=== PATIENT | male | born 1925 | race Caucasian/White ===

== ENCOUNTER 2017-06-09 11:25 | Observation (INO) | payer MEDICARE, BC ==
--- NOTE | 2017-06-09 13:13 | RAD ---
HISTORY: Syncope COMPARISONS: June 15, 2004 VIEWS: 1: frontal portable view of the chest at 12:50 PM FINDINGS: LINES AND TUBES: None. CARDIOMEDIASTINAL SILHOUETTE: The cardiomediastinal silhouette is normal for portable technique. PLEURA: The costophrenic angles are sharp. No pleural abnormalities are noted. LUNG PARENCHYMA: The lungs are clear. ABDOMEN: The upper abdomen is clear. There is no subphrenic gas. BONES AND SOFT TISSUES: No bone or soft tissue abnormalities are noted. IMPRESSION: NO ACTIVE CARDIOPULMONARY DISEASE.
[2017-06-09 13:34] LABS: Hematocrit 40 % (42-52); Hemoglobin 13.8 g/dl (14.0-18.0); Mean Corpuscular HGB Conc 35 g/dl (31-36); Mean Corpuscular Hemoglobin 31 pg (27-31); Mean Corpuscular Volume 89 fL (80-94); Mean Platelet Volume 9 um3 (7.4-10.4); Red Cell Distribution Width 14 % (10.5-15)
--- NOTE | 2017-06-09 13:35 | RAD ---
INDICATION: Syncope COMPARISON: December 27, 2015 TECHNIQUE: Noncontrast axial source images were acquired from the skull base to the vertex. FINDINGS: Ventricles/sulci: There is cortical atrophy with compensatory dilatation of the CSF spaces. Brain parenchyma: There is periventricular and subcortical white matter change compatible with chronic ischemia. Intracranial hemorrhage:None. Extra-axial spaces: There are no abnormal extra axial fluid collections or evidence of extra-axial mass. Calvarium: There is no calvarial fracture or other calvarial abnormality. Scalp: There is no evidence of scalp or extracalvarial soft tissue abnormality. Paranasal sinuses/mastoid: The paranasal sinuses and mastoid air cells are clear. Other: None. IMPRESSION: CORTICAL ATROPHY WITH CHRONIC MICROVASCULAR ISCHEMIC CHANGES. NO ACUTE FINDINGS.
[2017-06-09 13:56] LABS: Troponin I 0.01 ng/mL (<0.04)
[2017-06-09 14:13] LABS: Albumin 3.7 g/dL (3.2-5.2); BUN/Creatinine Ratio 30.4 (8-20); EGFR African American 118.8 (>60); EGFR Non-African American 92.4 (>60); Globulin 2.5 g/dL (2-4); Magnesium 2.6 mg/dL (1.9-2.7); Potassium 4.1 mmol/L (3.5-5.0); Total Protein 6.2 g/dL (6.4-8.9)
[2017-06-09 14:19] LABS: TSH (Thyroid Stimulating Horm) 2.36 mcIU/mL (0.34-5.60)
--- NOTE | 2017-06-09 14:28 | ED ---
Sindy Dorantes SooYoung, scribed for Mark Osorio MD on 06/09/17 at 1155 . Dizziness - HPI Summary HPI Summary: An 89 y/o M presents to ED after near-syncope onset [employer]. Pt was in an elevator and suddenly felt lightheaded. Other people in the elevator helped him to the ground before he fell. Associated sx: lightheadedness, mild confusion, generalized weakness. Over the past few weeks, he's been more fatigued than normal. Pt is unsure of any sx prior to onset. No prev episodes of syncope. Nonsmoker, occ ETOH. Pert PMHx: CABG. - History Of Current Complaint Chief Complaint: EDSyncope Stated Complaint: NEAR SYNCOPE Time Seen by Provider: 06/09/17 11:52 Hx Obtained From: Patient, Family/Order Desk Caller - nephew at bedside Onset/Duration: Resolved Severity Initially: Mild Severity Currently: Mild Character: Lightheaded Associated Signs And Symptoms: Positive: Other: - general fatigue; lightheadedness; mild confusion; generalized weakness - Allergies/Home Medications Allergies/Adverse Reactions: Allergies Allergy/AdvReac Type Severity Reaction Status Date / Time No Known Allergies Allergy Verified 08/13/15 10:33 Home Medications: Home Medications Fosinopril (NF) [Monopril (NF)] 10 mg PO DAILY 06/09/17 [History Confirmed 06/09] Sertraline* [Zoloft*] 25 mg PO DAILY 06/09/17 [History Confirmed 06/09/17] Terazosin CAP* [Hytrin CAP*] 2 mg PO BEDTIME 06/09/17 [History Confirmed ] amLODIPine TAB* [Norvasc 5 mg TAB*] 5 mg PO DAILY 06/09/17 [History Confirmed ] PMH/Surg Hx/FS Hx/Imm Hx Previously Healthy: No Cardiovascular History: Reports: Hx Coronary Artery Disease - CABGX4 1999, Hx Hypertension - WELL CONTROLLED History: Reports: Other Problems/Disorders - RIGHT SPERMATOCELE Sensory History: Reports: Hx Contacts or Glasses - GLASSES Denies: Hx Hearing Aid Opthamlomology History: Reports: Hx Contacts or Glasses - GLASSES - Surgical History Surgery Procedure, Year, and Place: HERNIA REPAIR MANY YRS AGO. BIL[place] [facility] [place] Anesthesia Reactions: No Infectious Disease History: No Infectious Disease History: Denies: Traveled Outside the [place] in Last 30 Days - Family History Known Family History: Positive: Cardiac Disease, Other - neg: anasthesia reaction - Social History Occupation: Retired Lives: Alone Alcohol Use: Rare Hx Substance Use: No Substance Use Type: Reports: None Hx Tobacco Use: Yes Smoking Status (MU): Former Smoker Review of Systems Positive: Fatigue Neurological: Other - pos: mild confusion, lightheadedness Positive: Weakness, Syncope All Other Systems Reviewed And Are Negative: Yes Physical Exam Triage Information Reviewed: Yes Vital Signs On Initial Exam: Initial Vitals BP 139/66 06/09/17 11:37 Vital Signs Reviewed: Yes Appearance: Positive: Well-Appearing, No Pain Distress Skin: Positive: Skin Color Reflects Adequate Perfusion Head/Face: Positive: Normal Head/Face Inspection Eyes: Positive: EOMI ENT: Positive: Normal ENT inspection Neck: Positive: Nontender Respiratory/Lung Sounds: Positive: Clear to Auscultation, Breath Sounds Present Cardiovascular: Positive: RRR, Murmur - systolic Abdomen Description: Positive: Nontender Musculoskeletal: Positive: Strength/ROM Intact Neurological: Positive: Sensory/Motor Intact, Alert, Oriented to Person Place, Time, CN Intact II-III Psychiatric: Positive: Normal - [place] Coma Scale Best Eye Response: 4 - Spontaneous Best Motor Response: 6 - Obeys Commands Best Verbal Response: 5 - Oriented Coma Scale Total: 15 Diagnostics - Vital Signs Vital Signs Temp Pulse Resp BP Pulse Ox 06/09/17 11:39 57 98 06/09/17 11:38 98.7 F 57 16 139/66 98 06/09/17 11:37 139/66 - Laboratory Result Diagrams: 06/09/17 13:24 06/09/17 13:24 Lab Statement: Any lab studies that have been ordered have been reviewed, and results considered in the medical decision making process. - Radiology CXR Xray Interpretation: No Acute Changes - IMPRESSION: No active cardiopulmonary dz. ED physician has reviewed this radiology report and agrees. Radiology Interpretation Completed By: Radiologist - CT BRAIN CT CT Interpretation: No Acute Changes - IMPRESSION: CORTICAL ATROPHY WITH CHRONIC MICROVASCULAR ISCHEMIC CHANGES. NO ACUTE FINDINGS. ED physician has reviewed this radiology report and agrees. CT Interpretation Completed By: Radiologist - EKG 1245 Cardiac Rate: NL - 52 bpm EKG Rhythm: Sinus Bradycardia ST Segment: Normal - no STEMI Dizzy Course/Dx - Course Course Of Treatment: An 89 y/o M presents to ED after near-syncope onset [employer]. Pt was in an elevator and suddenly felt lightheaded. Other people in the elevator helped him to the ground before he fell. Associated sx: lightheadedness , mild confusion, general weakness. Over the past few weeks, he's been more fatigued than normal. Pt is unsure of his sx prior to onset. No prev episodes of syncope. Nonsmoker, occ ETOH. Pert PMHx: CABG. FHx; cardiac dz. CXR is negative. Brain CT shows "IMPRESSION: CORTICAL ATROPHY WITH CHRONIC MICROVASCULAR ISCHEMIC CHANGES. NO ACUTE FINDINGS." - Diagnoses Provider Diagnoses: Syncope, Heart murmur - Provider Notifications Discussed Care Of Patient With: Ayo Irving - hospitalist Time Discussed With Above Provider: 14:16 Instructed by Provider To: Admit As Inpatient Discharge - Discharge Plan Condition: Good Disposition: ADMITTED TO [facility] The documentation as recorded by the Sindy guidry SooYoung accurately reflects the service I personally performed and the decisions made by me, Mark Osorio MD.
[2017-06-09 14:34] LABS: Urine Bilirubin Negative (Negative); Urine Glucose 1+(50 mg/dL) (Negative); Urine Nitrite Negative (Negative)
[2017-06-09] MEDS ORDERED: Acetaminophen TAB* 325 MG PO PRN (15:28)
[2017-06-09] MEDS ORDERED: Ondansetron INJ* 2 MG/ML VIAL IV PRN (15:28)
[2017-06-09] MEDS ORDERED: Enoxaparin(*) 40 MG/0.4 ML SYR SUBCUT SCH (16:00)
[2017-06-09] MEDS ORDERED: Atenolol TAB* 50 MG PO SCH (18:00)
[2017-06-09] MEDS ORDERED: Aspirin Low Dose CHEW TAB* 81 MG PO SCH (18:00)
[2017-06-09] MEDS ORDERED: Finasteride TAB* 5 MG PO SCH (21:00)
[2017-06-09] MEDS ORDERED: Terazosin CAP* 1 MG PO SCH (21:00)
--- NOTE | 2017-06-09 21:05 | HP ---
CC: Dr. Rodriguez* ADMISSION HISTORY AND PHYSICAL: DATE OF ADMISSION: 06/09/17 PRIMARY CARE PROVIDER: Dr. Rodriguez. ADMITTING PROVIDER: CLAUDIO Quintanilla SUPERVISING PHYSICIAN: Dr. Babar Riojas* (dictated by CLAUDIO Quintanilla). CHIEF COMPLAINT: Near syncope. HISTORY OF PRESENT ILLNESS: This is an 89-year-old gentleman with known coronary disease, who presented to the emergency department after a near syncopal event. The patient states that he was in his apartment complex standing and waiting for an elevator when he suddenly saw like he was unable to stand because of weakness and had some associated chest discomfort. He denies really feeling dizzy, but believes he might have been somewhat short of breath. There were a few people around him that helped him to the ground and then to a chair. His chest discomfort resolved and then he had a similar episode just about an hour ago according to his nephew. After the episode more recently, he also commented that his extremities felt cold. He also recalls that he has similar symptoms about 2 weeks ago in terms of a chest discomfort, but he did not have any syncope or presyncope at that time and did not seek medical care. Over the last couple of weeks, he has noted decreased exercise tolerance and some more generalized fatigue. He generally walked from his apartment to downtown and is able to do so without difficulty, but over the last couple of weeks, he has felt quite fatigued about correction his journey. He denies any recent illness. No cough, shortness of breath, fevers, or chills. He notes that he has had recent medication changes including introduction of Zoloft for some mild confusion and irritability and his statin was discontinued, but changes to his antihypertensive regimen. In regards to his cardiac history, he has remote history of CABG about 20 years ago and has been stable ever since. He is on medical management for this, but has no significant history of angina or recent stenting or other hospitalizations for any reason. PAST MEDICAL HISTORY: 1. Coronary artery disease, status post CABG. 2. BPH. PAST SURGICAL HISTORY: 1. Inguinal hernia repair. 2. CABG about 20 years ago. HOME MEDICATIONS: 1. Aspirin 81. 2. Atenolol 50 mg p.o. daily. 3. Lipitor 20 mg p.o. daily. 4. Finasteride 5 mg p.o. at bedtime. 5. Fosinopril 10 mg p.o. daily. 6. Sertraline 25 mg p.o. daily. 7. Terazosin 2 mg p.o. at bedtime. 8. Amlodipine 5 mg p.o. daily. SOCIAL HISTORY: The patient lives in an apartment at [facility]. He quit smoking about 40 years ago and sounds like he has less than 07-japt-m-year smoking history. He rarely consumes alcohol. REVIEW OF SYSTEMS: As noted above in HPI. All other systems reviewed and considered negative. PHYSICAL EXAMINATION VITAL SIGNS: Initial vitals temperature 98.7 degrees Fahrenheit, pulse 60 beats per minute, respiratory rate 16, oxygen saturation 98% on room air, and blood pressure 139/66 mmHg. DIAGNOSTIC STUDIES/LAB DATA: CBC shows white blood cell count of 6000, hemoglobin of 13.8 g/dL, and platelet count of 137,000. Comprehensive metabolic panel is unremarkable with sodium of 139 mmol/L, potassium of 4.1, BUN of 24, creatinine of 0.79, random glucose of 129, lactic acid of 1.6, magnesium of 2.6. Total bilirubin and transaminases within normal limits. Troponin negative at 0.01. TSH normal at 2.36. Urinalysis shows 1+ glucose and trace ketones. Hospital imaging: Chest x-ray shows no acute process. CT of the brain shows atrophy and microvascular changes, but nothing acute. EKG shows sinus bradycardia. ASSESSMENT AND PLAN: This is an 89-year-old gentleman with a history of coronary artery disease and benign prostatic hyperplasia, who presented to the emergency department after near syncopal episode accompanied by chest discomfort. The patient will be admitted to observation status for further evaluation. 1. Near syncope and chest discomfort - the patient has known coronary disease. His initial EKG and troponin are benign. No dysrhythmias appreciated on telemetry in the emergency department. We will plan to obtain an echocardiogram as well as orthostatic vitals and continuous telemetry monitoring. He is noted to be normotensive in the emergency department. He is mildly bradycardic, but not severely so. 2. Glucosuria. The patient has 1+ glucose noted on his urinalysis. His random glucose is appropriate, but we will check hemoglobin A1c to evaluate further. 3. Coronary artery disease - no evidence of acute coronary syndrome. 4. Benign prostatic hyperplasia. 5. Code status. The patient is a full code. 6. Healthcare prosy is the patient's nephew, Jovani Phillips, with cell phone [phone]. 7. DVT prophylaxis. The patient will be started on subcu Lovenox. 8. Disposition: The patient is being admitted to observation status with anticipated length of stay to be less than 2 midnights. CLAUDIO QUINTANILLA [id number]/CPS #: [id number] ERNA
[2017-06-10] MEDS ORDERED: Haloperidol INJ IV/IM* 5 MG/ML AMP IV SLOW PU ONE (08:17)
--- NOTE | 2017-06-10 08:17 | PN ---
Subjective Date of Service: 06/10/17 Interval History: Patient seen and examined at bedside. Pt states that he wants to leave. Denies fever, chills, shortness of breath, chest discomfort, N/V/D. Pt is walking in the halls with [facility] staff. Pt has taken his telemetry off and wouldn't cooperate for an echo. Discussed Pt with his nephew Jovani, who states that the patient is confused every morning. He states that he received a phone call daily from [facility] [place] [facility] and his confusion improves over the day. Tele: Sinus dhara, rate 50's. Family History: Unchanged from Admission Social History: Unchanged from Admission Past Medical History: Unchanged from Admission Objective Active Medications: Acetaminophen (Tylenol Tab*) 650 mg PO Q4H PRN Reason: FEVER/PAIN Amlodipine Besylate (Norvasc Tab*) 5 mg PO DAILY RIGOBERTO Aspirin (Aspirin Low Dose Tab*) 81 mg PO QPM RIGOBERTO Atenolol (Tenormin Tab*) 50 mg PO QPM RIGOBERTO Enoxaparin Sodium (Lovenox(*)) 40 mg SUBCUT Q24H RIGOBERTO Finasteride (Proscar Tab*) 5 mg PO BEDTIME RIGOBERTO Lisinopril (Prinivil Tab*) 10 mg PO DAILY RIGOBERTO Ondansetron HCl (Zofran Inj*) 4 mg IV Q4H PRN Reason: NAUSEA/VOMITING Sertraline HCl (Zoloft*) 25 mg PO DAILY RIGOBERTO Terazosin HCl (Hytrin Cap*) 2 mg PO BEDTIME RIGOBERTO Vital Signs 06/09/17 06/09/17 06/09/17 14:30 15:00 15:30 Temperature Pulse Rate 55 54 61 Respiratory 16 17 17 Rate Blood Pressure 164/69 182/78 137/75 (mmHg) O2 Sat by Pulse 99 99 97 Oximetry 06/09/17 06/09/17 06/09/17 16:00 17:07 19:33 Temperature 98.3 F 97.6 F Pulse Rate 60 63 55 Respiratory 18 16 Rate Blood Pressure 131/59 191/82 147/61 (mmHg) O2 Sat by Pulse 97 99 95 Oximetry 06/09/17 06/10/17 06/10/17 19:49 01:14 05:19 Temperature 97.3 F Pulse Rate 65 50 Respiratory 18 20 Rate Blood Pressure 112/53 176/63 (mmHg) O2 Sat by Pulse 100 Oximetry Oxygen Devices in Use Now: None Appearance: NAD, sitting up on the side of the bed Ears/Nose/Mouth/Throat: Mucous Membranes Moist Respiratory: Symmetrical Chest Expansion and Respiratory Effort, Clear to Auscultation Cardiovascular: RRR, - - 2/6 systolic murmur Extremities: No Edema Skin: No Rash or Ulcers Neurological: NL Muscle Strength and Tone, - - Alert and Oriented to Person and Place, confused Lines/Tubes/Other Access: Clean, Dry and Intact Peripheral IV - site benign Nutrition: Taking PO's Result Diagrams: 06/09/17 13:24 06/09/17 13:24 Assess/Plan/Problems-Billing Assessment: Mr. Phillips is an 89 yo male with PMH significant for CAD s/p CABG, and BPH who presented to the emergency room with complaints of a near syncopal episode and chest discomfort. - Patient Problems (1) Altered mental status Code(s): R41.82 - ALTERED MENTAL STATUS, UNSPECIFIED SNOMED Code(s): 548449510 Comment: - Pt is confused and agitated this morning - New per Dr. Rodriguez - Not new per Nupur Hahn - Supportive care (2) Near syncope Comment: - Tele - Sinus dhara in the 50's - Trop 0.01 x3 - Echo pending - Pt noted to be orthostatic from sitting to standing early this morning (3) Chest pain Code(s): R07.9 - CHEST PAIN, UNSPECIFIED SNOMED Code(s): 60318908 Comment: - Denies chest pain at this time - Troponin 0.01 x3 (4) Glucosuria Code(s): R81 - GLYCOSURIA SNOMED Code(s): 20965447 Comment: - HgA1C 6.8 (5) CAD (coronary artery disease) Code(s): I25.10 - ATHSCL HEART DISEASE OF [place] CORONARY ARTERY W/O ANG PCTRS SNOMED Code(s): 32260606 Comment: - No evidence ACS at this time - Continue atenolol, ASA and statin (6) HTN (hypertension) Current Visit: No Status: Chronic Code(s): I10 - ESSENTIAL (PRIMARY) HYPERTENSION SNOMED Code(s): 15482009 Comment: - SBP 130-190's with the exception of orthostatic VS - Continue atenolol and amlodipine - Hold ACEI for now (7) BPH (benign prostatic hyperplasia) Code(s): N40.0 - BENIGN PROSTATIC HYPERPLASIA WITHOUT LOWER URINRY TRACT SYMP SNOMED Code(s): 724116143 Comment: - Continue finasteride (8) DVT prophylaxis Code(s): VPG7251 - SNOMED Code(s): 777758528 Comment: - Lovenox (9) Full code status Code(s): Z78.9 - OTHER SPECIFIED HEALTH STATUS SNOMED Code(s): 534171331 Status and Disposition: OBV. Discharge to home when medically stable.
[2017-06-10] MEDS ORDERED: Haloperidol INJ IV/IM* 5 MG/ML AMP ONE (08:18)
[2017-06-10] MEDS ORDERED: Sertraline* 25 MG TAB PO SCH (09:00)
[2017-06-10] MEDS ORDERED: amLODIPine TAB* 5 MG PO SCH (09:00)
[2017-06-10] MEDS ORDERED: Lisinopril TAB* 10 MG PO SCH (09:00)
[2017-06-10] MEDS ORDERED: Perflutren Lipid Microsphere* 3 ML VIAL ONE (12:23)
[2017-06-10 12:24] VITALS: BP 123/58
--- NOTE | 2017-06-10 14:21 | ECHO ---
Patient: TJ [facility] Rec#: [id number] : 1925 Date: 06/10/2017 Age: 89y Height: 185.42 cm / 73.0 in Weight: 99.79 kg / 219.9 lbs Sex: M BSA: 2.24 Room#: 437 Admit Date#: 06/09/2017 Type: Inpatient Referring: Ayo Irving Reading: Andry Lange MD [place]: Sherry Hoffmann RDCS CC: Marco Antonio Rodriguez MD Transthoracic Echocardiogram Indication: Syncope BP: 176/63 HR: 53 Rhythm: Bradycardia Findings History: CAD with CABGx4 1999,HTN,former smoker. Technical Comments: The study is technically limited due to the patient's smoking history. 3 ml Definity used for enhancement. Completed at 1330. Left Ventricle: The left ventricular chamber size is normal. Mild concentric left ventricular hypertrophy is observed. Global left ventricular wall motion and contractility are within normal limits. There is normal left ventricular systolic function. The estimated ejection fraction is 60-65%. Abnormal left ventricular diastolic function is observed. The patient was unable to perform a Valsalva maneuver. Left Atrium: The left atrium is mildly dilated. Right Ventricle: The right ventricular cavity size is normal. The right ventricular global systolic function is normal. Right Atrium: The right atrium is moderately dilated. Aortic Valve: The aortic valve is trileaflet. The aortic valve leaflets are mildly thickened. There is no evidence of aortic regurgitation. There is mild to moderate aortic stenosis. The highest aortic valve velocity was obtained with the standard probe from the A5C view. Mitral Valve: The mitral valve leaflets are mildly thickened. There is trace to mild mitral regurgitation. Tricuspid Valve: The tricuspid valve leaflets are normal. There is mild to moderate tricuspid regurgitation. No pulmonary hypertension is noted. Pulmonic Valve: The pulmonic valve appears normal. There is mild to moderate pulmonic regurgitation. There is no pulmonic stenosis. Pericardium: There is no significant pericardial effusion. Aorta: There is no dilatation of the ascending aorta. There is no dilatation of the aortic arch. There is no dilation of the aortic root. Pulmonary Artery: The main pulmonary artery is not well visualized. Venous: The venous system appears normal. The inferior vena cava appears normal in size. There is a greater than 50% respiratory change in the inferior vena cava dimension. Contrast: Definity was used to optimize study. 3 ml used. Intravenous contrast was used to enhance endocardial border definition. Conclusions There is normal left ventricular systolic function. The estimated ejection fraction is 60-65%. Global left ventricular wall motion and contractility are within normal limits. Mild concentric left ventricular hypertrophy is observed. The left ventricular chamber size is normal. Abnormal left ventricular diastolic function is observed. The left atrium is mildly dilated. The right atrium is moderately dilated. There is mild to moderate aortic stenosis (). There is mild to moderate tricuspid regurgitation (TR). There is mild to moderate pulmonic regurgitation (ID). Since the prior echocardiogram completed 06/15/04, pertinent changes are prior not noted, prior TR graded trace and prior ID not commented upon. Measurements Name Value Normal Range RVIDd (AP) 2D 2.7 cm (0.9 - 2.6) RVDdMajor (2D) 4.1 cm (2.2 - 4.4) RAd ISD 4CH 5.8 cm (3.4 - 4.9) RA (A4C)W 4.5 cm (2.9 - 4.6) IVSd (2D) 1.1 cm (0.6 - 1) LVPWd (2D) 1.2 cm (0.6 - 1) LVIDd (2D) 4.5 cm (3.6 - 5.4) LVIDs (2D) 3.1 cm - LV FS (2D) 30 % (25 - 45) Aortic Annulus 2.1 cm (1.4 - 2.6) Ao root diameter (2D) 3.5 cm (2.1 - 3.5) Ascending Ao 3.1 cm (2.1 - 3.4) Aortic arch 2.3 cm (1.8 - 3.4) Descending Ao 0.6 cm - LA dimension (AP) 2D 3.9 cm (2.3 - 3.8) LAd ISD 4CH 5.4 cm (2.9 - 5.3) LA ISD 4CH W 3.6 cm (2.5 - 4.5) Name Value Normal Range LA ESV SP 4CH (A/L) 74 ml - LA ESV SP 2CH (A/L) 83 ml - LA ESV BP (A/L) 84 ml - LA ESV BP (A/L) index 37.66 ml/m2 - LA ESV SP 4CH (MOD) 65 ml - LA ESV SP 2CH (MOD) 79 ml - Name Value Normal Range MV E-wave Vmax 0.9 m/sec - MV deceleration time 286 msec - MV A-wave Vmax 1.1 m/sec - MV E:A ratio 0.75 ratio - LV septal e' Vmax 0.05 m/sec - LV lateral e' Vmax 0.1 m/sec - LV E:e' septal ratio 18 ratio - LV E:e' lateral ratio 9 ratio - Name Value Normal Range AV Vmax 2.7 m/sec - AV VTI 69.1 cm - AV peak gradient 29.2 mmHg - AV mean gradient 14.2 mmHg - LVOT diameter 2 cm - LVOT Vmax 0.9 m/sec - LVOT VTI 23.9 cm - LVOT peak gradient 2.96 mmHg - LVOT mean gradient 1.46 mmHg - SV LVOT 88 ml - CLARA (continuity Vmax) 1 cm2 - CLARA (continuity VTI) 1.1 cm2 - Name Value Normal Range TR Vmax 2.7 m/sec - TR peak gradient 29 mmHg - RAP 3 mmHg - RVSP 32 mmHg - IVC diameter 1.3 cm - Name Value Normal Range PV Vmax 0.8 m/sec - PV peak gradient 2.6 mmHg -
--- NOTE | 2017-06-11 10:34 | DS ---
CC: Dr. Marco Antonio Rodriguez * DISCHARGE SUMMARY: DATE OF ADMISSION: 06/09/17 DATE OF DISCHARGE: 06/10/17 ATTENDING PHYSICIAN: Dr. Elvis Verma * (dictated by Meghna Choe NP) . PRIMARY CARE PROVIDER: Dr. Marco Antonio Rodriguez. PRIMARY DIAGNOSES: 1. Near syncope. 2. Emem-sk-qkswoehq aortic valve stenosis. 3. Unknown orthostatic hypotension. SECONDARY DIAGNOSES: 1. Coronary artery disease. 2. Benign prostatic hypertrophy. STUDIES WHILE IN THE HOSPITAL: 1. Brain CT on 06/09/17. Radiologist's impression: Cortical atrophy with chronic microvascular ischemic changes. No acute findings. 2. Chest x-ray, 06/09/17. Radiologist's impression: No active cardiopulmonary disease. 3. Transthoracic echocardiogram on 06/10/17. Top Ironer's conclusion: There is normal left ventricular systolic function. The estimated ejection fraction is 60% to 65%. Global left ventricular wall motion and contractility are within normal limits. Mild concentric left ventricular hypertrophy is observed. The left ventricular chamber size is normal. Abnormal left ventricular diastolic function is observed. Left atrium is mildly dilated. The right atrium is moderately dilated. There is mokj-cj-wywbyhkw aortic stenosis. There is kfgj-dr-htgucakq tricuspid regurgitation, emxh-jy-yrfkcfym pulmonic regurgitation. Since the prior echocardiogram completed on 06/15/04, pertinent changes are prior not noted, prior TR grade trace and prior MA not commented upon. DISCHARGE MEDICATIONS: Continued home medications: 1. Finasteride 5 mg oral daily at bedtime. 2. Aspirin 81 mg oral daily. 3. Atorvastatin 20 mg oral daily. 4. Atenolol 50 mg oral daily. 5. Amlodipine 5 mg oral daily. 6. Terazosin 2 mg oral daily at bedtime. 7. Sertraline 25 mg oral daily. Discontinued home medication: 1. Fosinopril. HISTORY OF PRESENT ILLNESS/HOSPITAL COURSE: Mr. Phillips is an 89-year-old male with past medical history significant for coronary artery disease, who presented to the emergency room after a near syncopal event. The patient was in his apartment complex, just walked to the elevator and waiting for the elevator when he suddenly was unable to stand up due to weakness and have some associated chest discomfort. The patient denied feeling dizziness, but believes he may have had some sort of shortness of breath. There were few people around him, who helped him to the ground and then to a chair. The patient's chest discomfort resolved and then he had a repeat similar episode. Overall, the last couple of weeks, the patient has had decreased exercise tolerance and some more generalized fatigue. He is generally able to walk around without any difficulty, but over the last couple of weeks, he felt fatigued on his walks. The patient presented to the emergency room for further evaluation of his symptoms. While in the emergency room, the patient had a CT of his brain with no acute findings. EKG showing sinus bradycardia. The patient had lab that were fairly unremarkable. Troponin 0.01. The hospitalists were asked to evaluate the patient for admission. While in the hospital, the patient was monitored on telemetry. He became agitated during the night removing his telemetry, but prior to that he has noted the sinus bradycardia to sinus rhythm with rate down into the 50s to 60s. The patient continued to be very agitated this morning requiring a dose of IM Haldol. The patient was discussed with his nephew, who reports that often he is confused in the morning and that is improved during the day. The patient was found to have orthostatic vital signs last evening at admission. The patient had an echocardiogram showing yesf-lg-lcahvczc aortic stenosis. It was felt that the patient's near syncopal episode was secondary to him being slightly dehydrated and is xfwc-ja-njqtvfjf aortic stenosis in addition to orthostatic vital signs. The patient had his MAGGIE inhibitor held to allow for a little permissive hypertension to allow the drop in orthostatic vital signs. The patient on admission was noted to have glucosuria and had a hemoglobin A1c checked. His hemoglobin A1c was 6.8. Mr. Phillips is stable for discharge to home today. PHYSICAL EXAMINATION: Vital signs are as follows: Temperature 97.7, heart rate 67, respiratory rate 18, O2 sat 97% on room air, blood pressure 123/58. DISCHARGE PLAN: Mr. Phillips will be discharged to home. ACTIVITY: As tolerated. DIET: He should be on a regular, heart healthy, consistent carbohydrate diet. As far as the patient's presyncopal episode, I suspect this is secondary to orthostatic hypotension in addition to aortic stenosis. I will defer further recommendations for the patient's aortic stenosis to Dr. Rodriguez. For the patient's orthostatic hypotension, I discontinued his MAGGIE inhibitor to allow slightly permissive hypertension to allow for the drop in blood pressure with the orthostatic hypotension. The patient was noted to have a slightly elevated hemoglobin A1c of 6.8. For now, we recommend holding off on any interventions, although the patient could be on a consistent carbohydrate diet and this could better control his glucose. Rest of the patient's home medications have been continued. The patient is return to the emergency room for any chest pain, shortness of breath. The patient has a followup appointment with his primary care provider, Dr. Rodriguez on 06/22/17 at 1 p.m., in addition visiting nurse services will come out for home visits and assess for any needs. This is a summarized report of a complex medical history and hospital stay. For further details, please see the entire medical record. TIME SPENT: Time for this discharge was approximately 50 minutes, greater than half of that was spent with the patient and his nephew discussing discharge plans and instructions. CONDITION ON DISCHARGE: Stable. Reviewed by TESSY CARROLL 06/21/17 [id number]/[facility] #: [id number] ERNA
== END 2017-06-10 15:30 | disposition home or self-care (01) ==
LOC: ED 11:25 → MEDTELE 14:18
PROVIDERS: ADMIT Internal Medicine; ATTEND Internal Medicine
DX: R55 Syncope and collapse (principal); I35.0 Nonrheumatic aortic (valve) stenosis; I25.10 Atherosclerotic heart disease of native coronary artery without angina pectoris; Z95.1 Presence of aortocoronary bypass graft; N40.0 Benign prostatic hyperplasia without lower urinary tract symptoms; Z79.82 Long term (current) use of aspirin; Z79.899 Other long term (current) drug therapy; R41.82 Altered mental status, unspecified; R07.9 Chest pain, unspecified; R81 Glycosuria; I10 Essential (primary) hypertension
CPT/HCPCS: 36415; 70450; 71010; 80053; 81003; 83036; 83605; 83735; 84443; 84484; 85025; 93005; 93306; A9270-GY; C8929; J1630; J1650

== ENCOUNTER 2017-08-23 17:24 | Emergency (ER) | payer MEDICARE, BC ==
[2017-08-23 19:48] LABS: Hematocrit 40 % (42-52); Hemoglobin 13.6 g/dl (14.0-18.0); Mean Corpuscular HGB Conc 34 g/dl (31-36); Mean Corpuscular Hemoglobin 31 pg (27-31); Mean Corpuscular Volume 90 fL (80-94); Mean Platelet Volume 9 um3 (7.4-10.4); Red Blood Count 4.44 10^6/ul (4.0-5.4); Red Cell Distribution Width 14 % (10.5-15); White Blood Count 7.8 10^3/ul (3.5-10.8)
[2017-08-23 20:02] LABS: Albumin 3.9 g/dL (3.2-5.2); BUN/Creatinine Ratio 22.1 (8-20); C Reactive Protein 4.47 mg/L (< 5.00); Calcium 9.4 mg/dL (8.6-10.3); EGFR African American 122.3 (>60); EGFR Non-African American 95.1 (>60); Globulin 2.9 g/dL (2-4); Potassium 3.8 mmol/L (3.5-5.0); Total Protein 6.8 g/dL (6.4-8.9)
[2017-08-23 21:01] LABS: TSH (Thyroid Stimulating Horm) 2.34 mcIU/mL (0.34-5.60)
--- NOTE | 2017-08-23 21:01 | RAD ---
INDICATION: Weakness. COMPARISON: Comparison is made with a prior chest x-ray study from June 09, 2017. TECHNIQUE: Dual-energy PA views of the chest were obtained. FINDINGS: The patient is status post sternotomy. The heart is within normal limits in size. The lungs are hyperinflated and clear. No pleural effusion is seen. IMPRESSION: NO EVIDENCE FOR ACTIVE CARDIOPULMONARY DISEASE.
--- NOTE | 2017-08-23 21:04 | RAD ---
INDICATION: Abdominal distention. COMPARISON: There are no prior studies available for comparison. TECHNIQUE: Supine and upright views of the abdomen were obtained. FINDINGS: The small bowel and colon appear nondistended. No free intraperitoneal air is seen. IMPRESSION: NO EVIDENCE FOR ACUTE FINDING.
[2017-08-23 21:42] LABS: Urine Bacteria Absent (Absent); Urine Bilirubin Negative (Negative); Urine Glucose 2+(150 mg/dL) (Negative); Urine Nitrite Negative (Negative)
--- NOTE | 2017-08-23 22:47 | ED ---
Yun Dorantes Rebecca, scribed for Megan Yang MD on 08/23/17 at 2010 . Complex/Multi-Sys Presentation - HPI Summary HPI Summary: Pt is an 89 y/o M who presents to ED c/o generalized weakness and fatigue. Nephew reports that for the last 3 days, he has been increasingly fatigued and fell this morning after which he was able to get himself up and denies any injuries. Sx aggravated and alleviated by nothing. Nephew additionally reports bilateral swelling under the eyes and abdominal distension. Denies any pain and SOB. Last BM was believed to be today and his nephew confirms the pt seems to be urinating regularly. - History Of Current Complaint Chief Complaint: EDWeakness Time Seen by Provider: 08/23/17 19:59 Hx Obtained From: Patient, Family/Dredge Runner - Nephew Onset/Duration: Lasting Days - 3 days, Still Present Severity Currently: None Location: Negative Aggravating Factor(s): Nothing Alleviating Factor(s): Nothing Associated Signs And Symptoms: Positive: Weakness - Generalized, Other - Fatigue , abdominal distension - Allergies/Home Medications Allergies/Adverse Reactions: Allergies Allergy/AdvReac Type Severity Reaction Status Date / Time No Known Allergies Allergy Verified 08/23/17 17:35 PMH/Surg Hx/FS Hx/Imm Hx Cardiovascular History: Reports: Hx Coronary Artery Disease - CABGX4 1999, Hx Hypertension - WELL CONTROLLED, Other Cardiovascular Problems/Disorders - Aortic stenosis History: Reports: Other Problems/Disorders - RIGHT SPERMATOCELE Sensory History: Reports: Hx Contacts or Glasses Denies: Hx Hearing Aid Opthamlomology History: Reports: Hx Contacts or Glasses - Surgical History Surgery Procedure, Year, and Place: HERNIA REPAIR MANY YRS AGO. BILAT CATARACT [address] [facility] [place] Hx Anesthesia Reactions: No Infectious Disease History: No Infectious Disease History: Denies: Traveled Outside the [place] in Last 30 Days - Family History Known Family History: Positive: Cardiac Disease, Other - neg: anasthesia reaction - Social History Alcohol Use: None Hx Substance Use: No Substance Use Type: Reports: None Hx Tobacco Use: Yes Smoking Status (MU): Former Smoker Review of Systems Positive: Fatigue, Other - Generalized weakness Negative: Shortness Of Breath Positive: Other - Abdominal distension Positive: Other - NEGATIVE: Pain Positive: Other - Bilateral swelling below the eyes All Other Systems Reviewed And Are Negative: Yes Physical Exam - Summary Physical Exam Summary: VITAL SIGNS: Reviewed. GENERAL: ~Patient is a well-developed and nourished male who is lying comfortable in the stretcher. Patient is not in any acute respiratory distress. HEAD AND FACE: No signs of trauma. No ecchymosis, hematomas or skull depressions. No sinus tenderness. EYES: PERRLA, EOMI x 2, No injected conjunctiva, no nystagmus. EARS: Hearing grossly intact. Ear canals and tympanic membranes are within normal limits. MOUTH: Oropharynx within normal limits. NECK: Supple, trachea is midline, no adenopathy, no JVD, no carotid bruit, no c- spine tenderness, neck with full ROM. CHEST: Symmetric, no tenderness at palpation LUNGS: Clear to auscultation bilaterally. No wheezing or crackles. CVS: Regular rate and rhythm, S1 and S2 present, no gallops appreciated. 2/6 systolic murmur over the left sternal border ABDOMEN: Soft, non-tender. Abdominal distension. No rebound no guarding, and no masses palpated. Bowel sounds are normal. EXTREMITIES: FROM in all major joints, no edema, no cyanosis or clubbing. NEURO: Alert and oriented x 3. No acute neurological deficits. Speech is normal and follows commands. SKIN: Dry and warm Triage Information Reviewed: Yes Vital Signs On Initial Exam: Initial Vitals Temp Pulse Resp BP Pulse Ox 98.5 F 66 16 168/77 96 08/23/17 17:35 08/23/17 17:35 08/23/17 17:35 08/23/17 17:35 08/23/17 17:35 Vital Signs Reviewed: Yes Diagnostics - Vital Signs Vital Signs Temp Pulse Resp BP Pulse Ox 08/23/17 17:35 98.5 F 66 16 168/77 96 - Laboratory Lab Results: Lab Results 08/23/17 08/23/17 08/23/17 Range/Units 19:33 19:33 19:33 WBC 7.8 (3.5-10.8) 10^3/ul RBC 4.44 (4.0-5.4) 10^6/ul Hgb 13.6 L (14.0-18.0) g/dl Hct 40 L (42-52) % MCV 90 (80-94) fL MCH 31 (27-31) pg MCHC 34 (31-36) g/dl RDW 14 (10.5-15) % Plt Count 124 L (150-450) 10^3/ul MPV 9 (7.4-10.4) um3 Neut % (Auto) 70.6 (38-83) % Lymph % (Auto) 17.1 L (25-47) % Hartley % (Auto) 10.9 H (1-9) % Eos % (Auto) 0.7 (0-6) % Baso % (Auto) 0.7 (0-2) % Absolute Neuts (auto) 5.5 (1.5-7.7) 10^3/ul Absolute Lymphs (auto) 1.3 (1.0-4.8) 10^3/ul Absolute Monos (auto) 0.9 H (0-0.8) 10^3/ul Absolute Eos (auto) 0.1 (0-0.6) 10^3/ul Absolute Basos (auto) 0.1 (0-0.2) 10^3/ul Absolute Nucleated RBC 0 10^3/ul Nucleated RBC % 0 Sodium 136 (133-145) mmol/L Potassium 3.8 (3.5-5.0) mmol/L Chloride 101 (101-111) mmol/L Carbon Dioxide 28 (22-32) mmol/L Anion Gap 7 (2-11) mmol/L BUN 17 (6-24) mg/dL Creatinine 0.77 (0.67-1.17) mg/dL Est GFR ( Amer) 122.3 (>60) Est GFR (Non-Af Amer) 95.1 (>60) BUN/Creatinine Ratio 22.1 H (8-20) Glucose 147 H (70-100) mg/dL Lactic Acid 1.8 (0.5-2.0) mmol/L Calcium 9.4 (8.6-10.3) mg/dL Total Bilirubin 1.00 (0.2-1.0) mg/dL AST 15 (13-39) U/L ALT 14 (7-52) U/L Alkaline Phosphatase 84 (34-104) U/L C-Reactive Protein 4.47 (< 5.00) mg/L Total Protein 6.8 (6.4-8.9) g/dL Albumin 3.9 (3.2-5.2) g/dL Globulin 2.9 (2-4) g/dL Albumin/Globulin Ratio 1.3 (1-3) Lipase 40 (11.0-82.0) U/L Result Diagrams: 08/23/17 19:33 08/23/17 19:33 Lab Statement: Any lab studies that have been ordered have been reviewed, and results considered in the medical decision making process. - Radiology CXR Xray Interpretation: No Acute Changes - NO EVIDENCE FOR ACTIVE CARDIOPULMONARY DISEASE. Dr. Yang reviewed s radiology report. Radiology Interpretation Completed By: Radiologist KUB Xray Interpretation: No Acute Changes - NO EVIDENCE FOR ACUTE FINDINGS. Dr. Yang reviewed this radiology report. Radiology Interpretation Completed By: Radiologist Re-Evaluation - Re-Evaluation First Eval Re-Evaluation Time: 22:43 Comment: Pt is doing well and able to ambulate himself. Complex Multi-Symp Course/Dx Assessment/Plan: Pt is an 89 y/o M who presents to ED c/o generalized weakness and fatigue for 3 days, falling this morning after which he was able to get himself up and denies any injuries. Nephew additionally reports bilateral swelling under the eyes and abdominal distension. Denies any pain and SOB. Last BM was believed to be today and his nephew confirms the pt seems to be urinating regularly. CXR and KUB reveal no acute findings. UA was done. Pt will be D/C to home with Dx of weakness. He and his nephew understand and agree. Elevated BP noted. - Diagnoses Provider Diagnoses: Weakness Discharge - Discharge Plan Condition: Stable Disposition: HOME Patient Education Materials: Weakness (ED) Referrals: Marco Antonio Rodriguez MD [Primary Care Provider] - Additional Instructions: RETURN TO EMERGENCY DEPARTMENT FOR ANY NEW OR WORSENING SYMPTOMS The documentation as recorded by the Yun guidry Rebecca accurately reflects the service I personally performed and the decisions made by , Megan Yang MD.
[2017-08-23 22:55] VITALS: BP 194/82
== END 2017-08-23 22:55 | disposition home or self-care (01) ==
LOC: ED 17:24
DX: R53.1 Weakness (principal); R53.83 Other fatigue; Z87.891 Personal history of nicotine dependence; Z86.79 Personal history of other diseases of the circulatory system
CPT/HCPCS: 36415; 71010; 74020; 80053; 81003; 81015; 83605; 83690; 84443; 85025; 86140; 99282

== ENCOUNTER 2017-08-28 09:47 | Inpatient (IN) | payer MEDICARE, BC ==
[2017-08-28] MEDS ORDERED: NS 0.9% 1000 ML* 1,000 ML IV ONE (10:30)
[2017-08-28 10:41] LABS: ABS Basophils 0 10^3/ul (0-0.2); ABS Eosinophils 0 10^3/ul (0-0.6); ABS Lymphocytes 0.4 10^3/ul (1.0-4.8); ABS Monocytes 0.5 10^3/ul (0-0.8); ABS Neutrophils 7.8 10^3/ul (1.5-7.7); ABS Nucleated RBC 0 10^3/ul; Eosinophil % 0 % (0-6); Hematocrit 39 % (42-52); Hemoglobin 13.4 g/dl (14.0-18.0); Lymphocyte % 4.3 % (25-47); Mean Corpuscular HGB Conc 34 g/dl (31-36); Mean Corpuscular Hemoglobin 31 pg (27-31); Mean Corpuscular Volume 91 fL (80-94); Mean Platelet Volume 9 um3 (7.4-10.4); Nucleated Red Blood Cells % 0; Platelet Count 132 10^3/ul (150-450); Red Blood Count 4.32 10^6/ul (4.0-5.4); Red Cell Distribution Width 14 % (10.5-15); White Blood Count 8.7 10^3/ul (3.5-10.8)
[2017-08-28 10:49] LABS: INR 1.03 (0.77-1.02)
[2017-08-28 10:56] LABS: EGFR Non-African American 115.7 (>60)
--- NOTE | 2017-08-28 11:04 | RAD ---
HISTORY: Fall, left-sided weakness COMPARISONS: Head CT dated June 09, 2017 TECHNIQUE: Multiple contiguous axial CT scans were obtained of the head without intravenous contrast. FINDINGS: Evaluation is limited by patient motion artifact. HEMORRHAGE/INFARCT: There are multiple areas of parenchymal hemorrhage. In the right frontal lobe, there is a 4.1 cm intraparenchymal hemorrhage. In the right temporoparietal region, there is a 5.3 cm in maximum dimension parenchymal hemorrhage. There is likely a left frontal intraparenchymal hematoma on axial image 19 measuring 1.7 cm in size. There is a small amount of intraventricular hemorrhage. Elsewhere, there is no hemorrhage or acute infarct. MASSES/SHIFT: There is no mass or shift. The basal cisterns are preserved. EXTRA-AXIAL SPACES: There is a small amount of subarachnoid hemorrhage adjacent to the areas of intraparenchymal hemorrhage. SULCI AND VENTRICLES: There is a small amount of intraventricular hemorrhage. There is mild ventriculomegaly, though this is stable from June 01, 2017 and is likely related to volume loss. CEREBRUM: As noted above, there are are multiple areas of intraparenchymal hemorrhage with associated subarachnoid hemorrhage within the right frontal lobe, right temporal-parietal region, and left frontal lobe. There is hypoattenuation of the periventricular and subcortical white matter. BRAINSTEM: There are no focal parenchymal abnormalities. CEREBELLUM: There are no focal parenchymal abnormalities. VESSELS: The vessels are grossly normal. PARANASAL SINUSES: The paranasal sinuses are clear. ORBITS: The orbits are unremarkable. BONES AND SOFT TISSUE: No bone or soft tissue abnormalities are noted. OTHER: None IMPRESSION: 1. THERE ARE MULTIPLE AREAS OF INTRAPARENCHYMAL HEMORRHAGE WITHIN THE RIGHT FRONTAL LOBE, RIGHT TEMPORAL-PARIETAL REGION, AND LEFT FRONTAL LOBE MEASURING UP TO 5.3 CM IN MAXIMUM DIMENSION. 2. THERE IS A SMALL AMOUNT OF ASSOCIATED SUBARACHNOID HEMORRHAGE ADJACENT TO THE AREAS OF INTRAPARENCHYMAL HEMORRHAGE. 3. THERE IS NO SHIFT. 4. THERE IS A SMALL AMOUNT OF INTRAVENTRICULAR HEMORRHAGE WITHOUT NEW VENTRICULOMEGALY TO SUGGEST HYDROCEPHALUS. 5. CHRONIC SMALL VESSEL ISCHEMIC CHANGE. PRELIMINARY FINDINGS WERE DISCUSSED WITH DR. PARKS AT APPROXIMATELY 10:58 AM ON AUGUST 28, 2017.
--- NOTE | 2017-08-28 11:13 | RAD ---
HISTORY: Fall, left-sided weakness COMPARISONS: August 23, 2017 VIEWS: 1: frontal portable view of the chest at 10:40 AM FINDINGS: LINES AND TUBES: None. CARDIOMEDIASTINAL SILHOUETTE: The cardiomediastinal silhouette is normal for portable technique. PLEURA: The costophrenic angles are sharp. No pleural abnormalities are noted. LUNG PARENCHYMA: The lung volumes are low. There is prominence of the central pulmonary vasculature with a mild diffuse pattern of reticular opacification. ABDOMEN: The upper abdomen is clear. There is no subphrenic gas. BONES AND SOFT TISSUES: The patient is status post median sternotomy. IMPRESSION: 1. LOW LUNG VOLUMES. 2. PULMONARY INTERSTITIAL EDEMA
[2017-08-28] MEDS ORDERED: levETIRAcetam IV* 1,000 MG in NS 0.9% 100 ML* 100 ML IVPB SCH (12:00)
[2017-08-28] MEDS ORDERED: Labetalol IV* 5 MG/ML 20 ML VIAL IV PUSH ONE (12:11)
[2017-08-28] MEDS ORDERED: levETIRAcetam 500 MG IVPREMIX* 500 MG/100 ML BAG IV ONE ×2 (13:00)
--- NOTE | 2017-08-28 13:58 | PN ---
Progress Note - Progress Note Date of Service: 08/28/17 Note: Patient seen and examined. 89 yo right handed male with hx of dementia, CAD, HTN with Ct scan findings c/w ICH. Patient's nephew at bedside. Discussed in extend patient's condition. Family would not like any further neurosurgical intervention. Full note dictated: [id number] Fay Bustamante MD
--- NOTE | 2017-08-28 14:26 | HP ---
CC: Dr. Rodriguez.; Dr. Flaherty; Dr. Bustamante * ADMISSION HISTORY AND PHYSICAL: DATE OF ADMISSION: 08/28/17. PRIMARY CARE PROVIDER: Dr. Rodriguez. HEALTHCARE PROXY: His nephew Jovani Phillips. CODE STATUS: DNR. SOURCE OF INFORMATION: History obtained from interview of Jovani, ED physician , review of past medical records. RELIABILITY: Fair. CHIEF COMPLAINT: Fall with intracranial bleed. HISTORY OF PRESENT ILLNESS: This is an 89-year-old man, who has been feeling increasingly fatigued over the last week with increasing sleep, last admission in [facility] in May after a near syncopal event that being in the setting of orthostasis, who was found down undressed this morning by his barrel driller with his head wedged between his bed and his nightstand. EMS was activated and was thought to have a left facial deficit on arrival, which had resolved on presentation to the emergency room. CT brain notable for multiple areas of intraparenchymal hemorrhage, the largest being 5.3 cm in maximal dimension. The hospitalist service was consulted for admission. When seen by this author, the patient was writhing around, mourning. He was able to tell me his name, that he was in hospital, but will not follow any commands. He denied pain, could not indicate why he was moaning. PAST MEDICAL HISTORY: Includes: 1. Aortic valve stenosis. 2. CAD, status post CABG. 3. BPH. 4. Orthostatic hypotension. 5. Dementia. 6. Hospital acquired delirium. 7. Inguinal hernia repair. 8. CABG . MEDICATIONS: Not reconciled from last hospital stay include: 1. Amlodipine 5 mg daily. 2. Terazosin 2 mg at bed time. 3. Zoloft 25 mg daily. 4. Finasteride 5 mg at bedtime. 5. Atorvastatin 20 mg daily. 6. Atenolol 50 mg in the evening. 7. Aspirin 81 mg daily. ALLERGIES: No known drug allergies. FAMILY HISTORY: No CVAs. SOCIAL HISTORY: Lives in [facility]. Smoked 40 years prior, rare alcohol. REVIEW OF SYSTEMS: Unable to obtain from the patient, other than he has been increasingly fatigued and sleepy from patient's nephew who sees him every day or every other day. PHYSICAL EXAMINATION GENERAL: Elderly man, moaning in bed, who keeps his eyes closed, will not open them for this author, I am unable to manually open them as he resists. VITAL SIGNS: When seen by this author 207/92, heart rate 72, respiratory rate 26, T-max 98.1, was 96% on room air. HEENT: His oropharynx is clear. He has dry mucous membranes. He has no notable facial droop. He is moving all extremities, withdraws to pain. LUNGS: Clear. HEART: Regular rate and rhythm. ABDOMEN: Soft, but distended, nontender. EXTREMITIES: Warm and well perfused. No clubbing, cyanosis or edema. NEUROLOGIC: He is alert and oriented x2 to himself and hospital, cannot guess what year it is, difficult to assess cranial nerves, but has no notable facial droop. Palate elevates symmetrically. Eyes are unable to examine. Moving all extremities but not to command. LABORATORY DATA: Labs reviewed: Hemoglobin 13.4, platelets 132. INR 1.0. Sodium 140, potassium 3.6, bicarb 31, BUN 14, creatinine 0.65. Lactic acid 1.7. Data reviewed: Brain CT, impression: Multiple areas of intraparenchymal hemorrhage with the right frontal lobe, right temporoparietal region and left frontal lobe measuring 5.3 cm maximum dimension. There is small amount of associated subarachnoid hemorrhage adjacent to the areas of intraparenchymal hemorrhage. There is no shift. Small amount of intraventricular hemorrhage without new ventriculomegaly to suggest hydrocephalus, chronic small vessel ischemic changes. ASSESSMENT AND PLAN: This is an 89-year-old gentleman found down at home, presented to the hospital where he was found with multiple areas of intraparenchymal hemorrhage. 1. Intraparenchymal hemorrhage, discussed with Dr. Bustamante, admitted to the ICU , neurological checks, repeat imaging at Dr. Bustamante' discretion. Blood pressure controlled with labetalol IV, swallow eval at bed side. Loaded with Keppra, continue 500 mg b.i.d. Neurology consultation. 2. Reported neck pain to ED provider where a CT neck is still pending. 3. Hypertension, labetalol p.r.n. 4. N.p.o. at this time, we will restart antihypertensive made agents when able. 5. History of hospital-acquired delirium, we will try to minimize antipsychotics, we will treat if threat to himself or others. 6. DVT prophylaxis contraindicated in the setting of intracerebral bleeding, SCDs. 7. Code status is DNR. Discussed with patient's healthcare proxy. [id number]/[facility] #: [id number] ERNA
[2017-08-28] MEDS: Labetalol IV* 5 MG/ML 20 ML VIAL IV PUSH PRN (15:28)
[2017-08-28] MEDS: NS 0.9% 1000 ML* 1,000 ML IV SCH (16:03)
[2017-08-28] MEDS ORDERED: Ondansetron INJ* 2 MG/ML VIAL IV PRN (16:29)
[2017-08-28] MEDS ORDERED: OLANzapine TAB*ODT* 10 MG TAB PO ONE (16:32)
[2017-08-28] MEDS ORDERED: LABETALOL IVPB ONE (17:46)
[2017-08-28] MEDS ORDERED: NS 0.9% IVPB ONE (17:46)
--- NOTE | 2017-08-28 20:24 | ED ---
Gopi Dorantes Gabriel, scribed for Dinorah Toro MD on 08/28/17 at 1026 . Neurological HPI - HPI Summary HPI Summary: This patient is a 89 year old M BIBA to [facility] with a chief complaint of a fall, found by EMS to have left weakness, slurred speech. The patient rates the pain 0 /10 in severity. Patient denies cough, pain, general malaise, and vomiting. Patient found on the ground unresponsive at his residence. Last known well 2200 last night. Patient had a slight left sided deficit that seems to have resolved upon arrival. Patient has hx dementia, poor historian per EMS. Upon arrival, pt appears to be confused, he does not understand why he is at the hospital nor does he know what day of the week it is, his age or month. LEVEL 5 CAVEAT: HPI limited due to patient with altered mental status - History of Current Complaint Chief Complaint: EDNeurologicalDeficit Stated Complaint: STROKE LIKE SYMPTOMS Hx Obtained From: Patient, EMS, Medical Records Hx From Patient Unobtainable Due To: Altered Mental Status Onset/Duration: Sudden Onset - last night at 2200, Still Present Timing: Constant Onset Severity: Mild Current Severity: Mild Number of Seizures: 0 Neurological Deficit Location: Facial, LUE, LLE Headache Location: Radiates to : - no pain Pain Intensity: 0 Pain Scale Used: 0-10 Numeric Character: Weak, Impaired Speech, Other: - no pain Syncope Context: Unknown - found on floor at home. Nephew who checks on pt, found pt down and called EMS Syncope Location: Partial Extremities - left side Aggravating: Nothing Alleviating: Spontanious Resolution - improvement, minimal left weakness on presentation Associated Signs and Symptoms: Positive: Negative - cough, pain, general malaise , and vomiting TPA Considered: No - Additional Pertinent History Primary Care Physician: [id number] - Allergy/Home Medications Allergies/Adverse Reactions: Allergies Allergy/AdvReac Type Severity Reaction Status Date / Time No Known Allergies Allergy Verified 08/23/17 17:35 Home Medications: Home Medications Fosinopril (NF) [Monopril (NF)] 10 mg PO DAILY 08/31/17 [History Confirmed 08/31] Terazosin CAP* [Hytrin CAP*] 5 mg PO BEDTIME 08/31/17 [History Confirmed 12/20/ 17] PMH/Surg Hx/FS Hx/Imm Hx Previously Healthy: No Cardiovascular History: Reports: Hx Coronary Artery Disease - CABGX4 1999, Hx Hypertension - WELL CONTROLLED, Other Cardiovascular Problems/Disorders - Aortic stenosis History: Reports: Other Problems/Disorders - RIGHT SPERMATOCELE Sensory History: Reports: Hx Contacts or Glasses Denies: Hx Hearing Aid Opthamlomology History: Reports: Hx Contacts or Glasses Neurological History: Reports: Hx Dementia Denies: Hx CVA - Surgical History Surgery Procedure, Year, and Place: HERNIA REPAIR MANY YRS AGO. BILAT CATARACT 2006 [facility] [place]. Quadruple bypass 2001 Hx Anesthesia Reactions: No - Immunization History Date of Influenza Vaccine: 06/2017 Infectious Disease History: Yes Infectious Disease History: Denies: Traveled Outside the [place] in Last 30 Days - Family History Known Family History: Positive: Cardiac Disease, Other - neg: anesthesia reaction - Social History Alcohol Use: None Hx Substance Use: No Substance Use Type: Reports: None Hx Tobacco Use: Yes Smoking Status (MU): Former Smoker Review of Systems Constitutional: Negative - general malaise Cardiovascular: Negative Negative: Cough Negative: Vomiting Musculoskeletal: Negative - pain Positive: Weakness - left minimal weakness 4/5, but pt able to lift left arm above his head. 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 Physical Exam - Summary Physical Exam Summary: Appearance: Ill-appearing, no pain distress, Well-nourished Skin: Warm, color reflects adequate perfusion Head: Normal Head/Face Eyes: Conjunctiva clear ENT: Normal appearance Neck: Supple Respiratory: Lungs clear, Normal breath sounds, no respiratory distress Cardio: RRR, No murmur, pulses normal, brisk capillary refill Abdomen: soft, nontender Musculoskeletal: no edema Detailed Neuro Exam:alert, oriented to name only, moves all extremities, 4/5 motor on left, able to lift left arm above his head, 4/5 newspaper photojournalist on left, able to lift left leg, but 4/5, speech clear but pt struggles for some words Psychological: cooperative Triage Information Reviewed: Yes Vital Signs On Initial Exam: Initial Vitals Temp Pulse Resp BP Pulse Ox 98.1 F 61 19 169/108 96 08/28/17 09:56 08/28/17 09:56 08/28/17 09:56 08/28/17 09:56 08/28/17 09:56 Vital Signs Reviewed: Yes Completion Of Physical Exam Limited Due To: Dementia, Level 5 Diagnostics - Vital Signs Vital Signs Temp Pulse Resp BP Pulse Ox 08/28/17 10:00 69 18 179/82 96 08/28/17 09:56 98.1 F 61 19 169/108 96 - Laboratory Lab Results: Lab Results 08/28/17 08/28/17 08/28/17 Range/Units 10:20 10:20 10:20 WBC 8.7 (3.5-10.8) 10^3/ul RBC 4.32 (4.0-5.4) 10^6/ul Hgb 13.4 L (14.0-18.0) g/dl Hct 39 L (42-52) % MCV 91 (80-94) fL MCH 31 (27-31) pg MCHC 34 (31-36) g/dl RDW 14 (10.5-15) % Plt Count 132 L (150-450) 10^3/ul MPV 9 (7.4-10.4) um3 Neut % (Auto) 89.3 H (38-83) % Lymph % (Auto) 4.3 L (25-47) % Craven % (Auto) 6.1 (1-9) % Eos % (Auto) 0 (0-6) % Baso % (Auto) 0.3 (0-2) % Absolute Neuts (auto) 7.8 H (1.5-7.7) 10^3/ul Absolute Lymphs (auto) 0.4 L (1.0-4.8) 10^3/ul Absolute Monos (auto) 0.5 (0-0.8) 10^3/ul Absolute Eos (auto) 0 (0-0.6) 10^3/ul Absolute Basos (auto) 0 (0-0.2) 10^3/ul Absolute Nucleated RBC 0 10^3/ul Nucleated RBC % 0 INR (Anticoag Therapy) 1.03 H (0.77-1.02) APTT 29.3 (26.0-36.3) seconds Sodium 140 (133-145) mmol/L Potassium 3.6 (3.5-5.0) mmol/L Chloride 102 (101-111) mmol/L Carbon Dioxide 31 (22-32) mmol/L Anion Gap 7 (2-11) mmol/L BUN 14 (6-24) mg/dL Creatinine 0.65 L (0.67-1.17) mg/dL Est GFR ( Amer) 148.8 (>60) Est GFR (Non-Af Amer) 115.7 (>60) BUN/Creatinine Ratio 21.5 H (8-20) Glucose 226 H (70-100) mg/dL Lactic Acid (0.5-2.0) mmol/L Calcium 9.1 (8.6-10.3) mg/dL Total Bilirubin 1.10 H (0.2-1.0) mg/dL AST 17 (13-39) U/L ALT 12 (7-52) U/L Alkaline Phosphatase 89 (34-104) U/L Troponin I 0.02 (<0.04) ng/mL Total Protein 6.7 (6.4-8.9) g/dL Albumin 3.9 (3.2-5.2) g/dL Globulin 2.8 (2-4) g/dL Albumin/Globulin Ratio 1.4 (1-3) // Range/Units 10:20 WBC (3.5-10.8) 10^3/ul RBC (4.0-5.4) 10^6/ul Hgb (14.0-18.0) g/dl Hct (42-52) % MCV (80-94) fL MCH (27-31) pg MCHC (31-36) g/dl RDW (10.5-15) % Plt Count (150-450) 10^3/ul MPV (7.4-10.4) um3 Neut % (Auto) (38-83) % Lymph % (Auto) (25-47) % Craven % (Auto) (1-9) % Eos % (Auto) (0-6) % Baso % (Auto) (0-2) % Absolute Neuts (auto) (1.5-7.7) 10^3/ul Absolute Lymphs (auto) (1.0-4.8) 10^3/ul Absolute Monos (auto) (0-0.8) 10^3/ul Absolute Eos (auto) (0-0.6) 10^3/ul Absolute Basos (auto) (0-0.2) 10^3/ul Absolute Nucleated RBC 10^3/ul Nucleated RBC % INR (Anticoag Therapy) (0.77-1.02) APTT (26.0-36.3) seconds Sodium (133-145) mmol/L Potassium (3.5-5.0) mmol/L Chloride (101-111) mmol/L Carbon Dioxide (22-32) mmol/L Anion Gap (2-11) mmol/L BUN (6-24) mg/dL Creatinine (0.67-1.17) mg/dL Est GFR ( Amer) (>60) Est GFR (Non-Af Amer) (>60) BUN/Creatinine Ratio (8-20) Glucose (70-100) mg/dL Lactic Acid 1.7 (0.5-2.0) mmol/L Calcium (8.6-10.3) mg/dL Total Bilirubin (0.2-1.0) mg/dL AST (13-39) U/L ALT (7-52) U/L Alkaline Phosphatase (34-104) U/L Troponin I (<0.04) ng/mL Total Protein (6.4-8.9) g/dL Albumin (3.2-5.2) g/dL Globulin (2-4) g/dL Albumin/Globulin Ratio (1-3) Result Diagrams: 08/28/17 10:20 08/28/17 10:20 Lab Statement: Any lab studies that have been ordered have been reviewed, and results considered in the medical decision making process. - Radiology CXR Radiology Interpretation Completed By: Radiologist - 1. LOW LUNG VOLUMES. 2. PULMONARY INTERSTITIAL EDEMA ED physician has reviewed this radiology report. - CT CT Brain CT Interpretation Completed By: Radiologist - 1. THERE ARE MULTIPLE AREAS OF INTRAPARENCHYMAL HEMORRHAGE WITHIN THE RIGHT FRONTAL LOBE, RIGHT TEMPORAL- PARIETAL REGION, AND LEFT FRONTAL LOBE MEASURING UP TO 5.3 CM IN MAXIMUM DIMENSION. 2. THERE IS A SMALL AMOUNT OF ASSOCIATED SUBARACHNOID HEMORRHAGE ADJACENT TO THE AREAS OF INTRAPARENCHYMAL HEMORRHAGE. 3. THERE IS NO SHIFT. 4. THERE IS A SMALL AMOUNT OF INTRAVENTRICULAR HEMORRHAGE WITHOUT NEW VENTRICULOMEGALY TO SUGGEST HYDROCEPHALUS. 5. CHRONIC SMALL VESSEL ISCHEMIC CHANGE. ED physician has reviewed this radiology report. Re-Evaluation - Re-Evaluation First Eval Re-Evaluation Time: 11:18 Change: Unchanged - Spoke to patient's nephew and gave him the patients disposition. Second Eval Re-Evaluation Time: 11:47 Change: Unchanged Comment: Patient is restless in bed but speaks full sentences, Dr. Rizvi is at bedside Course/Dx - Course Assessment/Plan: CT brain reveals, per radiologist, 1. THERE ARE MULTIPLE AREAS OF INTRAPARENCHYMAL HEMORRHAGE WITHIN THE RIGHT FRONTAL LOBE,. RIGHT TEMPORAL-PARIETAL REGION, AND LEFT FRONTAL LOBE MEASURING UP TO 5.3 CM IN MAXIMUM. DIMENSION. 2. THERE IS A SMALL AMOUNT OF ASSOCIATED SUBARACHNOID HEMORRHAGE ADJACENT TO THE AREAS OF. INTRAPARENCHYMAL HEMORRHAGE. 3. THERE IS NO SHIFT. 4. THERE IS A SMALL AMOUNT OF INTRAVENTRICULAR HEMORRHAGE WITHOUT NEW VENTRICULOMEGALY TO. SUGGEST HYDROCEPHALUS. 5. CHRONIC SMALL VESSEL ISCHEMIC CHANGE. CXR reveals, per radiologist, 1. LOW LUNG VOLUMES. 2. PULMONARY INTERSTITIAL EDEMA. Test results with no significant abnormalities. In the ED course the patient was given IV Keppra load 1000mg, IV fluids and labetalol. 10:56 Discussed patient care with Dr. Ballesteros, radiology and he wanted to inform me of CT results, indicating multiple sites of intracerebral hemorrhage. 10:59 Discussed patient care with Dr. Bustamante, Neurosurgery and he suggested no intervention at this time and admit the patient. 11:00 Discussed patient care with Dr. Rizvi, Hospitalist and he has agreed to admit the patient. 11:50 Discussed patient care with Dr. Ballesteros to order an MRI for the patient, he believes it is not indicated at this time, as there is so much hemorrhage and a CT a short time ago showed no metastatic disease. Dr. Flaherty was also consulted per Dr. Bustamante. Nephew who is POA confirmed pt is a DNR. Patient will be admitted and follow up from Dr. Rizvi. The patient is agreeable with this plan. - Differential Dx Differential Diagnoses Neuro: Positive: Cerebrovascular Accident, Contusion, Intracranial Bleed - Diagnoses Provider Diagnoses: Intracerebral bleed, Hypertension, poor control, Dementia, Altered mental status - Physician Notifications Instructed by Provider To: Admit As Inpatient - Critical Care Time Critical Care Time: 30-74 min - 40 minutes Discharge - Discharge Plan Condition: Guarded Disposition: ADMITTED TO [facility] Consult Consult: 10:56 Discussed patient care with Dr. Ballesteros, radiology and he wanted to inform me of CT results. 10:59 Discussed patient care with Dr. Bustamante, Neurology and he suggested to admit the patient. No intervention at this time. 11:00 Discussed patient care with Dr. Rizvi, Hospitalist and he has agreed to admit the patient. 11:50 Discussed patient care with Dr. Ballesteros to order an MRI for the patient, he believes it is not indicated at this time. 12:00 Discussed patient care with Dr. Flaherty, who will follow pt from neurology standpoint. Suggests Keppra load. The documentation as recorded by the Gopi guidry Gabriel accurately reflects the service I personally performed and the decisions made by me, Dinorah oTro MD.
[2017-08-28] MEDS: niCARdipine 0.1MG/ML IVPREMIX* 20 MG/200 ML BAG IV SCH (20:51)
[2017-08-28] MEDS: levETIRAcetam 500 MG IVPREMIX* 500 MG/100 ML BAG IV SCH (21:34)
[2017-08-28] MEDS: Finasteride TAB* 5 MG PO SCH (22:27)
[2017-08-28] MEDS: Terazosin CAP* 1 MG PO SCH (22:27)
--- NOTE | 2017-08-28 22:53 | CONS ---
CONSULTATION REPORT: DATE OF CONSULT: 08/28/17 PATIENT OF: Dr. Rizvi. HISTORY OF PRESENT ILLNESS: This is an 89-year-old man who I am asked to evaluate for intracranial hemorrhage. History is chiefly through the son who noticed that he has had a slowly progressive dementia but it is worse within the past month to two. He has difficulty doing basic things such as dressing himself and preparing coffee. He no longer takes care of any his correspondence. The nephew who is his medical care decision maker is helping him. He has a healthcare mailroom assistant to help him with some of his basic functioning as well. He was seen yesterday, but today he was in his usual state of health, which is increasing fatigue but no focal symptoms. He has been writhing and moaning, but has not been communicating since he has been in the hospital. PAST MEDICAL HISTORY: He has a history of aortic valve stenosis; coronary artery disease, status post CABG; BPH; orthostatic hypotension; dementia. PAST SURGICAL HISTORY: He is status post CABG and inguinal herniorrhaphy. MEDICATIONS AT HOME: Include: 1. Amlodipine 5 mg daily. 2. Terazosin 2 mg at bedtime. 3. Zoloft 25 mg daily. 4. Finasteride 5 mg at bedtime. 5. Atorvastatin 20 mg daily. 6. Atenolol 50 mg in the evening. 7. Aspirin 81 mg daily. ALLERGIES: He has no known drug allergies. FAMILY HISTORY: No family history for stroke. SOCIAL HISTORY: He lives in [facility]. Has smoked 40 years prior but not recently and he drinks rarely. REVIEW OF SYSTEMS: Unable to be obtained from the patient and is per the nephew is significant mainly for increasing fatigue and confusion over the past weeks to months. PHYSICAL EXAM: Temperature is 98.1, pulse 68, blood pressure 213/95, respirations 19. He was not oriented. He would occasionally open his eyes, but would tend to be writhing and he would move his right side more than his left but he could not move his left arm and leg. There was also an observed asymmetry with some left facial weakness compared to the right, but this was all with observation, he was not cooperative with the exam at all. This was different than what his exam was with Dr. Rizvi, where he was alert and oriented x2 and had some speech. He withdrew to pain in all sites. Chest: Clear. Cardiovascular: Regular rate and rhythm. Abdomen: Soft, nontender. DIAGNOSTIC STUDIES/LAB DATA: His CT scan was reviewed and showed multiple areas of intracranial hemorrhage with right frontal and right temporoparietal being the largest as was the left frontal hemorrhage noted, as well as some small amount of subarachnoid hemorrhage and intraventricular hemorrhage. There was no hydrocephalus. Laboratories include white count of 8.7, hematocrit of 39, platelets of 132. INR 1.03, PTT 29.3. Normal CMP but for total bili is 1.1, glucose of 226, creatinine 0.65. IMPRESSION: The relative discussed with Dr. Bustamante that there would be no surgery and no intubation. I discussed the case further then with Dr. Rizvi, who is admitting to the ICU to treat hypertension, which is quite high and if treated most effectively would at this point require IV drips. The nephew would like to start at this point but we will reevaluate as time goes by. The patient has also been started on Keppra given his central nervous system hemorrhages. Dr. Prescott will be picking up neurological consult service tomorrow and will tell him about this patient depending on the degree of intervention the family wants. He will make decisions at that time how much he should be involved with Sharath's ongoing care. [id number]/[facility] #: [id number] ERNA
--- NOTE | 2017-08-28 23:17 | CONS ---
CONSULTATION REPORT: DATE OF CONSULT: HISTORY OF PRESENT ILLNESS: The patient is a very pleasant 89-year-old gentleman with history of cor onary artery disease, status post CABG several years ago, who has a history of dementia, who was brou ght this morning to the hospital after being found next to his bed. The patient was found to have sl ight left-sided weakness and he was brought to the emergency room. Last time seen normal at his base line was last night at 2200 hours. The patient is unknown if he had any falls. He denies any neck o r back pain. He denies any weakness. He denies any seizure, any headaches. Requested to see the abraham shepherd by Dr. Toro, ED physician, regarding significant findings consistent with a large right front al and right parietal intracranial hemorrhage with small left frontal hemorrhage and small intraventr icular extension. The patient is not on any blood thinners. According to his nephew, who is at his bedside, the patient is living alone and he has an aide that comes and helps him. PAST MEDICAL HISTORY: Coronary artery disease, hypertension, aortic stenosis, diabetes, dementia. PAST SURGICAL HISTORY: CABG, hernia repair, bilateral cataracts. MEDICATIONS: Unknown. ALLERGIES: No known drug allergies. FAMILY HISTORY: He has no immediate family other than his nephew, who is at his bedside and he is hi s healthcare proxy. SOCIAL HISTORY: Tobacco negative. Alcohol negative. Recreational drug use negative. 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 PHYSICAL EXAM: The patient is not in acute distress. He opens his eyes to voice. He is oriented x1 to 2. He follows commands. His pupils are equal and reactive. Cranial nerves II through XII are richelle ssly intact with exception of mild facial weakness on the left. Motor 4-5/5 in the right side, 4-/5 on the left side. The patient does have pronator drift on the left upper extremity. Deep tendon ref lexes +1 bilaterally. No clonus. No Babinski. Anthony's negative. Straight leg test negative in t he supine position. No pain to palpation of cervical, thoracic, or lumbar spine. He has free range of motion of cervical spine. DIAGNOSTIC STUDIES: The patient had a CT scan of the brain revealing large right frontal and another second large right parietal intracranial hemorrhage with a smaller left frontal hemorrhage with a sm all intraventricular hemorrhage and brain atrophy. The patient has previous CT scans of the brain th at showed chronic brain atrophy and one episode of small subarachnoid hemorrhage after reported fall . ASSESSMENT: The patient is a very pleasant 89-year-old right-handed gentleman with history of natali ia, hypertension, coronary artery disease, who was admitted through the hospital for altered mental s tatus after being found down with the CT scan findings consistent with a large right frontal, right p arietal, and left frontal intracranial hemorrhage. PLAN: The patient at this point has been treated in the emergency room. He has several foci of intr acranial hemorrhage based on my interpretation, this could represent lobar hemorrhages. At this poin t, there is no midline shift and the basal cisterns are wide open. We discussed CT scan findings wit h the patient's nephew and according to the patient's wishes and his nephew's wishes, he would not li ke to have any further surgical intervention. We discussed the option of placement of ventriculostom y or doing the craniotomy/craniectomy for evacuation of intracranial hemorrhages especially if his co ndition deteriorates. The patient's nephew reported that according to the patient's wishes, he would not like to proceed with any surgical intervention at this time and he understands the consequences of medical and surgical treatment options. He understands that his condition would deteriorate and h e has a risk of permanent neurological deficit or even especially if his hemorrhage expands. A t this point, we will be happy to maximize medical treatment. The patient is going to be admitted to the ICU per the hospitalist team, but we would recommend strict blood pressure control, seizure prop hylaxis for 7 days. The patient is scheduled for CTA of the brain and the cervical spine and we tommy mmended MRI of the brain to exclude other etiologies of hemorrhage. The patient is going to be evalu ated by Neurology for further recommendations. We will respect the patient's and the family's wishes regarding no new surgical intervention at this point. Thank you for allowing us to participate in the care of this patient. Please do not hesitate to cont act our office in case you have any further questions or concerns regarding the care of this patient. [id number]/[facility] #: [id number]
[2017-08-29] MEDS: niCARdipine 0.1MG/ML IVPREMIX* 20 MG/200 ML BAG IV SCH ×4 (00:10→19:04)
[2017-08-29] MEDS: NS 0.9% 1000 ML* 1,000 ML IV SCH (05:14)
[2017-08-29] MEDS: Atorvastatin* 20 MG TAB PO SCH (07:56)
[2017-08-29] MEDS: Sertraline* 25 MG TAB PO SCH (07:57)
[2017-08-29] MEDS ORDERED: amLODIPine TAB* 5 MG PO SCH (09:00)
[2017-08-29] MEDS: levETIRAcetam 500 MG IVPREMIX* 500 MG/100 ML BAG IV SCH ×2 (09:06→21:49)
--- NOTE | 2017-08-29 10:38 | RAD ---
INDICATION: Respiratory distress COMPARISON: Chest x-ray August 28, 2017 TECHNIQUE: Single AP portable view of the chest was obtained. FINDINGS: Image quality is compromised due to the relative inferiority of a portable chest x-ray. Similar the prior chest x-ray there is a mild degree of cardiomegaly. Sternotomy wires are again seen. There is hazy density overlying the bilateral lower lungs not substantially changed from the previous chest x-ray. Linear density at the mid-level right lung is similar to the prior chest x-ray, likely a small amount of fluid in the fissure. Visualized bones are normal for the patient's age. IMPRESSION: Similar appearance of cardiogenic pulmonary edema to the August 28, 2017 chest x-ray.
[2017-08-29] MEDS ORDERED: cloNIDine 0.1 MG PATCH* 0.1 MG/24 HR 7 DAY PATCH TRANSDERM SCH (11:00)
[2017-08-29 11:14] LABS: Urine Appearance Clear; Urine Blood Negative (Negative); Urine Color Yellow; Urine Ketones Trace (Negative); Urine Protein Negative (Negative); Urine Specific Gravity 1.011 (1.010-1.030); Urine Urobilinogen Negative (Negative)
[2017-08-29] MEDS: Labetalol IV* 5 MG/ML 20 ML VIAL IV PUSH PRN ×2 (13:47→23:56)
--- NOTE | 2017-08-29 16:52 | PN ---
Progress Note - Progress Note Date of Service: 08/29/17 SOAP: Subjective: [] No events ON, In ICU. On IV drip for HTN Objective: []Opens eyes to verbal, Follows commands. Mild left side weakness. Reported to be lethargic earlier Assessment: []89 yom ICH Plan: []Per family no ns intervention. Plan per IM team. Will be always available if needed. Fay Bustamante MD
--- NOTE | 2017-08-29 17:12 | PN ---
Subjective Date of Service: 08/29/17 Interval History: Seen this AM Breathing appeared labored, CXR checked without infiltrate Objective Active Medications: Atorvastatin Calcium (Lipitor*) 20 mg PO DAILY [facility] Last Admin: 08/29/17 07:56 Dose: Not Given Clonidine HCl (Iplhrltv-Jpm-4 0.1 Mg Patch*) 0.1 mg TRANSDERM Q7D [facility] Last Admin: 08/29/17 10:47 Dose: 0.1 mg Finasteride (Proscar Tab*) 5 mg PO BEDTIME [facility] Last Admin: 08/28/17 22:27 Dose: Not Given Sodium Chloride (Ns 0.9% 1000 Ml*) 1,000 mls @ 75 mls/hr IV PER RATE [facility] Stop: 08/31/17 01:49 Last Admin: 08/29/17 05:14 Dose: 75 mls/hr Levetiracetam (Keppra Iv Premix*) 500 mg in 100 mls @ 400 mls/hr IV Q12H [facility] Last Admin: 08/29/17 09:06 Dose: 400 mls/hr Nicardipine/Sodium Chloride (Cardene 0.1mg/Ml Ivpremix*) 20 mg in 200 mls @ 30 mls/hr IV .(as Initial Rate) [facility] PRN Reason: 3 MG/HR Last Admin: 08/29/17 08:19 Dose: 30 mls/hr Labetalol HCl (Trandate Iv*) 10 mg IV PUSH Q4H PRN PRN Reason: BLOOD PRESSURE Last Admin: 08/29/17 13:47 Dose: 10 mg Ondansetron HCl (Zofran Inj*) 4 mg IV Q4H PRN PRN Reason: NAUSEA Sertraline HCl (Zoloft*) 25 mg PO DAILY [facility] Last Admin: 08/29/17 07:57 Dose: Not Given Terazosin HCl (Hytrin Cap*) 2 mg PO BEDTIME [facility] Last Admin: 08/28/17 22:27 Dose: Not Given Vital Signs - 8 hr 08/29/17 08/29/17 08/29/17 09:15 09:30 09:39 Temperature Pulse Rate 85 89 84 Respiratory 18 11 20 Rate Blood Pressure 151/72 174/130 166/81 (mmHg) O2 Sat by Pulse 93 92 93 Oximetry 08/29/17 08/29/17 08/29/17 09:46 10:00 10:01 Temperature Pulse Rate 83 82 80 Respiratory 19 15 18 Rate Blood Pressure 157/66 150/66 (mmHg) O2 Sat by Pulse 94 92 94 Oximetry 08/29/17 08/29/17 08/29/17 10:21 10:30 10:35 Temperature Pulse Rate 82 75 Respiratory 28 17 19 Rate Blood Pressure 165/72 152/67 (mmHg) O2 Sat by Pulse 95 94 Oximetry 08/29/17 08/29/17 08/29/17 10:45 11:00 11:01 Temperature Pulse Rate 84 91 94 Respiratory 14 12 9 Rate Blood Pressure 150/73 156/121 (mmHg) O2 Sat by Pulse 93 92 92 Oximetry 08/29/17 08/29/17 08/29/17 11:30 11:31 11:37 Temperature 98.8 F Pulse Rate 91 98 Respiratory 18 24 Rate Blood Pressure 171/85 (mmHg) O2 Sat by Pulse 93 93 Oximetry 08/29/17 08/29/17 08/29/17 11:38 11:45 12:00 Temperature Pulse Rate 83 72 89 Respiratory 23 21 33 Rate Blood Pressure 152/75 142/72 (mmHg) O2 Sat by Pulse 93 94 92 Oximetry 08/29/17 08/29/17 08/29/17 12:01 12:16 12:30 Temperature Pulse Rate 104 82 89 Respiratory 32 23 15 Rate Blood Pressure 176/90 194/78 (mmHg) O2 Sat by Pulse 92 91 93 Oximetry 08/29/17 08/29/17 08/29/17 12:33 12:45 13:00 Temperature Pulse Rate 89 87 103 Respiratory 13 29 Rate Blood Pressure 137/92 167/91 (mmHg) O2 Sat by Pulse 93 92 90 Oximetry 08/29/17 08/29/17 08/29/17 13:15 13:30 13:31 Temperature Pulse Rate 99 95 96 Respiratory 17 17 16 Rate Blood Pressure 163/102 166/94 (mmHg) O2 Sat by Pulse 91 91 91 Oximetry 08/29/17 08/29/17 08/29/17 13:45 14:00 14:15 Temperature Pulse Rate 71 73 71 Respiratory 22 20 21 Rate Blood Pressure 157/80 140/73 155/71 (mmHg) O2 Sat by Pulse 94 96 96 Oximetry 08/29/17 08/29/17 08/29/17 14:30 14:45 15:00 Temperature Pulse Rate 79 72 92 Respiratory 18 20 15 Rate Blood Pressure 159/72 147/73 (mmHg) O2 Sat by Pulse 97 97 92 Oximetry 08/29/17 08/29/17 08/29/17 15:02 15:16 15:30 Temperature Pulse Rate 94 90 82 Respiratory 25 22 Rate Blood Pressure 129/108 182/89 (mmHg) O2 Sat by Pulse 92 94 95 Oximetry 08/29/17 08/29/17 15:42 15:45 Temperature 99.2 F Pulse Rate 88 Respiratory 26 Rate Blood Pressure 167/84 (mmHg) O2 Sat by Pulse 95 Oximetry Oxygen Devices in Use Now: Nasal Cannula, OxyMask Appearance: lying flat, increased work of breathing stable throughout day Eyes: No Scleral Icterus, PERRLA Ears/Nose/Mouth/Throat: Clear Oropharnyx Neck: NL Appearance and Movements; NL JVP, Trachea Midline Respiratory: Symmetrical Chest Expansion and Respiratory Effort, - - decreased throughout Cardiovascular: RRR Abdominal: NL Sounds; No Tenderness; No Distention, No Hepatosplenomegaly Lymphatic: No Cervical Adenopathy Neurological: - - AOx0 Result Diagrams: 08/28/17 10:20 08/28/17 10:20 Additional Lab and Data: Lab Results 08/28/17 08/28/17 08/28/17 Range/Units 10:20 10:20 10:20 WBC 8.7 (3.5-10.8) 10^3/ul RBC 4.32 (4.0-5.4) 10^6/ul Hgb 13.4 L (14.0-18.0) g/dl Hct 39 L (42-52) % MCV 91 (80-94) fL MCH 31 (27-31) pg MCHC 34 (31-36) g/dl RDW 14 (10.5-15) % Plt Count 132 L (150-450) 10^3/ul MPV 9 (7.4-10.4) um3 Neut % (Auto) 89.3 H (38-83) % Lymph % (Auto) 4.3 L (25-47) % [place] % (Auto) 6.1 (1-9) % Eos % (Auto) 0 (0-6) % Baso % (Auto) 0.3 (0-2) % Absolute Neuts (auto) 7.8 H (1.5-7.7) 10^3/ul Absolute Lymphs (auto) 0.4 L (1.0-4.8) 10^3/ul Absolute Monos (auto) 0.5 (0-0.8) 10^3/ul Absolute Eos (auto) 0 (0-0.6) 10^3/ul Absolute Basos (auto) 0 (0-0.2) 10^3/ul Absolute Nucleated RBC 0 10^3/ul Nucleated RBC % 0 INR (Anticoag Therapy) 1.03 H (0.77-1.02) APTT 29.3 (26.0-36.3) seconds Sodium 140 (133-145) mmol/L Potassium 3.6 (3.5-5.0) mmol/L Chloride 102 (101-111) mmol/L Carbon Dioxide 31 (22-32) mmol/L Anion Gap 7 (2-11) mmol/L BUN 14 (6-24) mg/dL Creatinine 0.65 L (0.67-1.17) mg/dL Est GFR ( Amer) 148.8 (>60) Est GFR (Non-Af Amer) 115.7 (>60) BUN/Creatinine Ratio 21.5 H (8-20) Glucose 226 H (70-100) mg/dL Lactic Acid (0.5-2.0) mmol/L Calcium 9.1 (8.6-10.3) mg/dL Total Bilirubin 1.10 H (0.2-1.0) mg/dL AST 17 (13-39) U/L ALT 12 (7-52) U/L Alkaline Phosphatase 89 (34-104) U/L Troponin I 0.02 (<0.04) ng/mL Total Protein 6.7 (6.4-8.9) g/dL Albumin 3.9 (3.2-5.2) g/dL Globulin 2.8 (2-4) g/dL Albumin/Globulin Ratio 1.4 (1-3) // Range/Units 10:20 WBC (3.5-10.8) 10^3/ul RBC (4.0-5.4) 10^6/ul Hgb (14.0-18.0) g/dl Hct (42-52) % MCV (80-94) fL MCH (27-31) pg MCHC (31-36) g/dl RDW (10.5-15) % Plt Count (150-450) 10^3/ul MPV (7.4-10.4) um3 Neut % (Auto) (38-83) % Lymph % (Auto) (25-47) % [place] % (Auto) (1-9) % Eos % (Auto) (0-6) % Baso % (Auto) (0-2) % Absolute Neuts (auto) (1.5-7.7) 10^3/ul Absolute Lymphs (auto) (1.0-4.8) 10^3/ul Absolute Monos (auto) (0-0.8) 10^3/ul Absolute Eos (auto) (0-0.6) 10^3/ul Absolute Basos (auto) (0-0.2) 10^3/ul Absolute Nucleated RBC 10^3/ul Nucleated RBC % INR (Anticoag Therapy) (0.77-1.02) APTT (26.0-36.3) seconds Sodium (133-145) mmol/L Potassium (3.5-5.0) mmol/L Chloride (101-111) mmol/L Carbon Dioxide (22-32) mmol/L Anion Gap (2-11) mmol/L BUN (6-24) mg/dL Creatinine (0.67-1.17) mg/dL Est GFR ( Amer) (>60) Est GFR (Non-Af Amer) (>60) BUN/Creatinine Ratio (8-20) Glucose (70-100) mg/dL Lactic Acid 1.7 (0.5-2.0) mmol/L Calcium (8.6-10.3) mg/dL Total Bilirubin (0.2-1.0) mg/dL AST (13-39) U/L ALT (7-52) U/L Alkaline Phosphatase (34-104) U/L Troponin I (<0.04) ng/mL Total Protein (6.4-8.9) g/dL Albumin (3.2-5.2) g/dL Globulin (2-4) g/dL Albumin/Globulin Ratio (1-3) Assess/Plan/Problems-Billing Assessment: 89 yo M found down found with multiple large ICH - Patient Problems (1) Intracerebral bleed Comment: Ed is the HCP No surgical management BP management, mainatain SBP<150 (2) Hypertension Comment: Nicardipine gtt start clonadine patch (3) BPH (benign prostatic hyperplasia) Comment: stable (4) DVT prophylaxis Comment: SCDs
[2017-08-29] MEDS: Finasteride TAB* 5 MG PO SCH (21:49)
[2017-08-29] MEDS: Terazosin CAP* 1 MG PO SCH (21:49)
[2017-08-30] MEDS: niCARdipine 0.1MG/ML IVPREMIX* 20 MG/200 ML BAG IV SCH ×7 (00:15→22:59)
[2017-08-30] MEDS ORDERED: LORazepam INJ* 2 MG/ML 1 ML VIAL IV ONE (02:50)
[2017-08-30] MEDS: Atorvastatin* 20 MG TAB PO SCH (09:23)
[2017-08-30] MEDS: Sertraline* 25 MG TAB PO SCH (09:23)
[2017-08-30] MEDS: levETIRAcetam 500 MG IVPREMIX* 500 MG/100 ML BAG IV SCH ×2 (09:51→19:50)
[2017-08-30] MEDS ORDERED: cloNIDine 0.3 MG PATCH* 0.3 MG/24 HR 7 DAY PATCH TRANSDERM SCH (12:00)
--- NOTE | 2017-08-30 13:36 | PN ---
Subjective Date of Service: 08/30/17 Interval History: Unable to titrate off nicardipine after initiation of clonidine patch Pt slightly more alert with HCP/Ed yesterday - was able to him where he was in [place] Otherwise, agitated and unable to follow commands this AM or contribute meaningfully to ROS Objective Active Medications: Clonidine HCl (Xbfqayxh-Kkv-6 0.3 Mg Patch*) 0.3 mg TRANSDERM Q7D [facility] Last Admin: 08/30/17 13:02 Dose: 0.3 mg Sodium Chloride (Ns 0.9% 1000 Ml*) 1,000 mls @ 75 mls/hr IV PER RATE [facility] Stop: 08/31/17 01:49 Last Admin: 08/29/17 05:14 Dose: 75 mls/hr Levetiracetam (Keppra Iv Premix*) 500 mg in 100 mls @ 400 mls/hr IV Q12H [facility] Last Admin: 08/30/17 09:51 Dose: 400 mls/hr Nicardipine/Sodium Chloride (Cardene 0.1mg/Ml Ivpremix*) 20 mg in 200 mls @ 30 mls/hr IV .(as Initial Rate) [facility] PRN Reason: 3 MG/HR Last Admin: 08/30/17 11:51 Dose: 70 mls/hr Labetalol HCl (Trandate Iv*) 10 mg IV PUSH Q4H PRN PRN Reason: BLOOD PRESSURE Last Admin: 08/29/17 23:56 Dose: 10 mg Morphine Sulfate (Morphine Inj (Syringe)*) 2 mg IV Q4H PRN PRN Reason: PAIN - MILD Ondansetron HCl (Zofran Inj*) 4 mg IV Q4H PRN PRN Reason: NAUSEA Sertraline HCl (Zoloft*) 25 mg PO DAILY [facility] Last Admin: 08/30/17 09:23 Dose: Not Given Vital Signs - 8 hr 08/30/17 08/30/17 08/30/17 05:45 06:00 06:15 Temperature Pulse Rate 88 95 91 Respiratory 26 25 18 Rate Blood Pressure 155/83 146/73 149/78 (mmHg) O2 Sat by Pulse 97 97 97 Oximetry 08/30/17 08/30/17 08/30/17 06:30 06:45 07:00 Temperature Pulse Rate 97 90 89 Respiratory 25 23 22 Rate Blood Pressure 162/77 158/85 157/84 (mmHg) O2 Sat by Pulse 97 97 97 Oximetry 08/30/17 08/30/17 08/30/17 07:15 07:30 07:44 Temperature Pulse Rate 93 111 98 Respiratory 19 23 20 Rate Blood Pressure 139/74 154/83 (mmHg) O2 Sat by Pulse 97 96 96 Oximetry 08/30/17 08/30/17 08/30/17 07:45 07:46 08:00 Temperature 97.6 F Pulse Rate 98 90 Respiratory 26 23 Rate Blood Pressure 176/75 154/77 (mmHg) O2 Sat by Pulse 96 96 Oximetry 08/30/17 08/30/17 08/30/17 08:15 08:30 09:00 Temperature Pulse Rate 87 71 96 Respiratory 22 20 26 Rate Blood Pressure 160/87 149/75 171/85 (mmHg) O2 Sat by Pulse 97 97 97 Oximetry 08/30/17 08/30/17 08/30/17 09:15 09:30 09:45 Temperature Pulse Rate 85 92 90 Respiratory 24 23 24 Rate Blood Pressure 158/83 145/76 148/80 (mmHg) O2 Sat by Pulse 96 97 97 Oximetry 08/30/17 08/30/17 08/30/17 10:00 10:15 10:30 Temperature Pulse Rate 77 85 78 Respiratory 24 17 20 Rate Blood Pressure 158/79 146/75 156/80 (mmHg) O2 Sat by Pulse 96 98 98 Oximetry 08/30/17 08/30/17 08/30/17 10:45 11:00 11:15 Temperature Pulse Rate 94 74 90 Respiratory 22 21 21 Rate Blood Pressure 162/77 154/82 172/85 (mmHg) O2 Sat by Pulse 97 98 96 Oximetry 08/30/17 08/30/17 08/30/17 11:30 11:45 12:00 Temperature Pulse Rate 81 71 78 Respiratory 17 20 21 Rate Blood Pressure 156/75 138/72 143/66 (mmHg) O2 Sat by Pulse 98 97 98 Oximetry 08/30/17 08/30/17 08/30/17 12:15 12:30 12:31 Temperature Pulse Rate 89 87 97 Respiratory 20 25 22 Rate Blood Pressure 154/75 145/84 (mmHg) O2 Sat by Pulse 98 98 98 Oximetry 08/30/17 08/30/17 08/30/17 12:45 13:00 13:15 Temperature Pulse Rate 97 95 91 Respiratory 17 20 17 Rate Blood Pressure 146/71 168/78 151/79 (mmHg) O2 Sat by Pulse 98 98 99 Oximetry Oxygen Devices in Use Now: OxyMask Appearance: NAD Eyes: No Scleral Icterus, PERRLA Ears/Nose/Mouth/Throat: - - dry mm Neck: NL Appearance and Movements; NL JVP, Trachea Midline Respiratory: Symmetrical Chest Expansion and Respiratory Effort, - - decreased bases Cardiovascular: NL Sounds; No Murmurs; No JVD, RRR Abdominal: NL Sounds; No Tenderness; No Distention Lymphatic: No Cervical Adenopathy Skin: No Rash or Ulcers Neurological: - - AOx0, moving all extremities Result Diagrams: 08/28/17 10:20 08/28/17 10:20 Additional Lab and Data: Lab Results 08/28/17 08/28/17 08/28/17 Range/Units 10:20 10:20 10:20 WBC 8.7 (3.5-10.8) 10^3/ul RBC 4.32 (4.0-5.4) 10^6/ul Hgb 13.4 L (14.0-18.0) g/dl Hct 39 L (42-52) % MCV 91 (80-94) fL MCH 31 (27-31) pg MCHC 34 (31-36) g/dl RDW 14 (10.5-15) % Plt Count 132 L (150-450) 10^3/ul MPV 9 (7.4-10.4) um3 Neut % (Auto) 89.3 H (38-83) % Lymph % (Auto) 4.3 L (25-47) % [place] % (Auto) 6.1 (1-9) % Eos % (Auto) 0 (0-6) % Baso % (Auto) 0.3 (0-2) % Absolute Neuts (auto) 7.8 H (1.5-7.7) 10^3/ul Absolute Lymphs (auto) 0.4 L (1.0-4.8) 10^3/ul Absolute Monos (auto) 0.5 (0-0.8) 10^3/ul Absolute Eos (auto) 0 (0-0.6) 10^3/ul Absolute Basos (auto) 0 (0-0.2) 10^3/ul Absolute Nucleated RBC 0 10^3/ul Nucleated RBC % 0 INR (Anticoag Therapy) 1.03 H (0.77-1.02) APTT 29.3 (26.0-36.3) seconds Sodium 140 (133-145) mmol/L Potassium 3.6 (3.5-5.0) mmol/L Chloride 102 (101-111) mmol/L Carbon Dioxide 31 (22-32) mmol/L Anion Gap 7 (2-11) mmol/L BUN 14 (6-24) mg/dL Creatinine 0.65 L (0.67-1.17) mg/dL Est GFR ( Amer) 148.8 (>60) Est GFR (Non-Af Amer) 115.7 (>60) BUN/Creatinine Ratio 21.5 H (8-20) Glucose 226 H (70-100) mg/dL Lactic Acid (0.5-2.0) mmol/L Calcium 9.1 (8.6-10.3) mg/dL Total Bilirubin 1.10 H (0.2-1.0) mg/dL AST 17 (13-39) U/L ALT 12 (7-52) U/L Alkaline Phosphatase 89 (34-104) U/L Troponin I 0.02 (<0.04) ng/mL Total Protein 6.7 (6.4-8.9) g/dL Albumin 3.9 (3.2-5.2) g/dL Globulin 2.8 (2-4) g/dL Albumin/Globulin Ratio 1.4 (1-3) 08/28/17 Range/Units 10:20 WBC (3.5-10.8) 10^3/ul RBC (4.0-5.4) 10^6/ul Hgb (14.0-18.0) g/dl Hct (42-52) % MCV (80-94) fL MCH (27-31) pg MCHC (31-36) g/dl RDW (10.5-15) % Plt Count (150-450) 10^3/ul MPV (7.4-10.4) um3 Neut % (Auto) (38-83) % Lymph % (Auto) (25-47) % [place] % (Auto) (1-9) % Eos % (Auto) (0-6) % Baso % (Auto) (0-2) % Absolute Neuts (auto) (1.5-7.7) 10^3/ul Absolute Lymphs (auto) (1.0-4.8) 10^3/ul Absolute Monos (auto) (0-0.8) 10^3/ul Absolute Eos (auto) (0-0.6) 10^3/ul Absolute Basos (auto) (0-0.2) 10^3/ul Absolute Nucleated RBC 10^3/ul Nucleated RBC % INR (Anticoag Therapy) (0.77-1.02) APTT (26.0-36.3) seconds Sodium (133-145) mmol/L Potassium (3.5-5.0) mmol/L Chloride (101-111) mmol/L Carbon Dioxide (22-32) mmol/L Anion Gap (2-11) mmol/L BUN (6-24) mg/dL Creatinine (0.67-1.17) mg/dL Est GFR ( Amer) (>60) Est GFR (Non-Af Amer) (>60) BUN/Creatinine Ratio (8-20) Glucose (70-100) mg/dL Lactic Acid 1.7 (0.5-2.0) mmol/L Calcium (8.6-10.3) mg/dL Total Bilirubin (0.2-1.0) mg/dL AST (13-39) U/L ALT (7-52) U/L Alkaline Phosphatase (34-104) U/L Troponin I (<0.04) ng/mL Total Protein (6.4-8.9) g/dL Albumin (3.2-5.2) g/dL Globulin (2-4) g/dL Albumin/Globulin Ratio (1-3) Assess/Plan/Problems-Billing Assessment: 89 yo M found down found with multiple large ICH - Patient Problems (1) Intracerebral bleed Comment: Jovani is the HCP No surgical management BP management, mainatain SBP<150 Goal is comfort -but BP control should still be achieved (2) Hypertension Comment: Nicardipine gtt increase clonadine patch consider nitro if no improvement (3) Goals of care, counseling/discussion Comment: Discussion with Edward/HCP Goal should be comfort. No planned intervention In agreement with hospice consult 1st choice for placement when ready [facility] be [facility] (4) DVT prophylaxis Comment: SCDs Status and Disposition: to floor when nicardipine off
[2017-08-30] MEDS: NS 0.9% 1000 ML* 1,000 ML IV SCH (23:02)
[2017-08-30] MEDS: Labetalol IV* 5 MG/ML 20 ML VIAL IV PUSH PRN (23:25)
[2017-08-31] MEDS: niCARdipine 0.1MG/ML IVPREMIX* 20 MG/200 ML BAG IV SCH ×10 (01:29→22:08)
[2017-08-31] MEDS: levETIRAcetam 500 MG IVPREMIX* 500 MG/100 ML BAG IV SCH ×2 (09:37→20:51)
[2017-08-31] MEDS: Nitroglycerin 0.4 MG/HR PATCH* (10 MG) TRANSDERM SCH (12:46)
[2017-08-31] MEDS: Sertraline* 25 MG TAB PO SCH (14:21)
--- NOTE | 2017-08-31 17:27 | CONSULT ---
Palliative / Hospice Consult Ordering Provider: Sebastian Rizvi - Subjective Code Status: DNR Advance Directives Location: In Chart MOLST Part A Completed: Yes Date: 08/28/17 MOLST Part E Completed:: Yes Date: 08/31/17 HCP Completed: Yes - nephew Kishorefabio Alan - History or Present Illness History or Present Illness: This 89 year old [place] immigrant had been living independently in an apartment with some assistance from aids, and was experiencing some mental status decline over the past weeks, but was found unclothed and unresponsive on the floor on the morning of admission, brought to the ER where he was found to have a large intracranial hemorrhage with several foci of bleeding, and was admitted to the ICU for control of his veryhigh BP. The p[atient's HCP immediately stated the patient wouldnot want neurosurgical intervention. He has shown improvement in his ability to respond and converse since his admission, but has been kept in bed, as he has significant hemiparesis, and has been NPO. I examined him and discussed his situation. He is confused, believes he is in the hospital as a "volunteer" and is oriented only to self. He speaks about following God's will. I did manage to reach his nephew and HCP, Jovani. He is quite certain his uncle would not want any intervention, but would opt for comfort measures only. Lab Values: Laboratory Last Values WBC 8.7 10^3/ul (3.5-10.8) 08/28/17 10:20 RBC 4.32 10^6/ul (4.0-5.4) 08/28/17 10:20 Hgb 13.4 g/dl (14.0-18.0) L 08/28/17 10:20 Hct 39 % (42-52) L 08/28/17 10:20 MCV 91 fL (80-94) 08/28/17 10:20 MCH 31 pg (27-31) 08/28/17 10:20 MCHC 34 g/dl (31-36) 08/28/17 10:20 RDW 14 % (10.5-15) 08/28/17 10:20 Plt Count 132 10^3/ul (150-450) L 08/28/17 10:20 MPV 9 um3 (7.4-10.4) 08/28/17 10:20 Neut % (Auto) 89.3 % (38-83) H 08/28/17 10:20 Lymph % (Auto) 4.3 % (25-47) L 08/28/17 10:20 [place] % (Auto) 6.1 % (1-9) 08/28/17 10:20 Eos % (Auto) 0 % (0-6) 08/28/17 10:20 Baso % (Auto) 0.3 % (0-2) 08/28/17 10:20 Absolute Neuts (auto) 7.8 10^3/ul (1.5-7.7) H 08/28/17 10:20 Absolute Lymphs (auto) 0.4 10^3/ul (1.0-4.8) L 08/28/17 10:20 Absolute Monos (auto) 0.5 10^3/ul (0-0.8) 08/28/17 10:20 Absolute Eos (auto) 0 10^3/ul (0-0.6) 08/28/17 10:20 Absolute Basos (auto) 0 10^3/ul (0-0.2) 08/28/17 10:20 Absolute Nucleated RBC 0 10^3/ul 08/28/17 10:20 Nucleated RBC % 0 08/28/17 10:20 INR (Anticoag Therapy) 1.03 (0.77-1.02) H 08/28/17 10:20 APTT 29.3 seconds (26.0-36.3) 08/28/17 10:20 Sodium 140 mmol/L (133-145) 08/28/17 10:20 Potassium 3.6 mmol/L (3.5-5.0) 08/28/17 10:20 Chloride 102 mmol/L (101-111) 08/28/17 10:20 Carbon Dioxide 31 mmol/L (22-32) 08/28/17 10:20 Anion Gap 7 mmol/L (2-11) 08/28/17 10:20 BUN 14 mg/dL (6-24) 08/28/17 10:20 Creatinine 0.65 mg/dL (0.67-1.17) L 08/28/17 10:20 Est GFR ( Amer) 148.8 (>60) 08/28/17 10:20 Est GFR (Non-Af Amer) 115.7 (>60) 08/28/17 10:20 BUN/Creatinine Ratio 21.5 (8-20) H 08/28/17 10:20 Glucose 226 mg/dL (70-100) H 08/28/17 10:20 Lactic Acid 1.7 mmol/L (0.5-2.0) 08/28/17 10:20 Calcium 9.1 mg/dL (8.6-10.3) 08/28/17 10:20 Total Bilirubin 1.10 mg/dL (0.2-1.0) H 08/28/17 10:20 AST 17 U/L (13-39) 08/28/17 10:20 ALT 12 U/L (7-52) 08/28/17 10:20 Alkaline Phosphatase 89 U/L (34-104) 08/28/17 10:20 Troponin I 0.02 ng/mL (<0.04) 08/28/17 10:20 Total Protein 6.7 g/dL (6.4-8.9) 08/28/17 10:20 Albumin 3.9 g/dL (3.2-5.2) 08/28/17 10:20 Globulin 2.8 g/dL (2-4) 08/28/17 10:20 Albumin/Globulin Ratio 1.4 (1-3) 08/28/17 10:20 Urine Color Yellow 08/29/17 10:27 Urine Appearance Clear 08/29/17 10:27 Urine pH 7.0 (5-9) 08/29/17 10:27 Ur Specific Lena 1.011 (1.010-1.030) 08/29/17 10:27 Urine Protein Negative (Negative) 08/29/17 10:27 Urine Ketones Trace (Negative) H 08/29/17 10:27 Urine Blood Negative (Negative) 08/29/17 10:27 Urine Nitrate Negative (Negative) 08/29/17 10:27 Urine Bilirubin Negative (Negative) 08/29/17 10:27 Urine Urobilinogen Negative (Negative) 08/29/17 10:27 Ur Leukocyte Esterase Negative (Negative) 08/29/17 10:27 Urine Glucose 3+(>=500 mg/dl) (Negative) H 08/29/17 10:27 - Objective Active Medications: Clonidine HCl (Jayyznzs-Blt-6 0.3 Mg Patch*) 0.3 mg TRANSDERM Q7D [facility] Last Admin: 08/30/17 13:02 Dose: 0.3 mg Levetiracetam (Keppra Iv Premix*) 500 mg in 100 mls @ 400 mls/hr IV Q12H [facility] Last Admin: 08/31/17 09:37 Dose: 400 mls/hr Nicardipine/Sodium Chloride (Cardene 0.1mg/Ml Ivpremix*) 20 mg in 200 mls @ 30 mls/hr IV .(as Initial Rate) [facility] PRN Reason: 3 MG/HR Last Admin: 08/31/17 14:14 Dose: 50 mls/hr Labetalol HCl (Trandate Iv*) 10 mg IV PUSH Q4H PRN PRN Reason: BLOOD PRESSURE Last Admin: 08/30/17 23:25 Dose: 10 mg Morphine Sulfate (Morphine Inj (Syringe)*) 2 mg IV Q4H PRN PRN Reason: PAIN - MILD Nitroglycerin (Nitroglycerin 10 Mg Patch*) 1 patch TRANSDERM DAILY [facility] Last Admin: 08/31/17 12:46 Dose: 1 patch Ondansetron HCl (Zofran Inj*) 4 mg IV Q4H PRN PRN Reason: NAUSEA Pharmacy Profile Note (Nitro Patch/Oint Remove*) 1 note PATCH OFF BEDTIME [facility] Sertraline HCl (Zoloft*) 25 mg PO DAILY [facility] Last Admin: 08/31/17 14:21 Dose: Not Given Vital Signs: Vital Signs: Temp Pulse Resp BP Pulse Ox 98.9 F 80 13 152/72 93 08/31/17 07:39 08/31/17 15:15 08/31/17 15:15 08/31/17 15:15 08/31/17 15:15 Patient Weight: Weight 207 lb 3.752 oz Intake and Output: Intake & Output 08/29/17 08/30/17 08/31/17 09/01/17 06:59 06:59 06:59 06:59 Intake Total 2351 1170 2298 1057 Output Total 350 200 Balance 2351 820 2098 1057 Weight 205 lb 14.588 oz 201 lb 0.985 oz 207 lb 3.752 oz Intake: IV Fluids 799 379 NS (0.9%) 599 379 IVPB 509 100 NS (0.9%) 509 keppra 100 Medicated IV 5903 541 9583 957 CC - Labetolol/Trandate 564 CC - Nicarpidine/Cardene 466 397 0325 633 ns 817 324 Output: Urine 200 Straight Cath 350 Other: Estimated Void Medium Large Medium Medium # Voids 1 2 1 2 ADLs: Meal Record Start: 08/28/17 14: 12 Freq: ,,18 Status: Active Protocol: Document 08/28/17 18:00 [id number] (Rec: 08/28/17 18:17 [id number] ICU-M26) Document 08/29/17 09:00 [id number] (Rec: 08/29/17 09:08 [id number] ISDEMO-M05 ) Document 08/29/17 13:00 [id number] (Rec: 08/29/17 13:37 [id number] ICU-C16) Document 08/29/17 18:00 [id number] (Rec: 08/29/17 19:12 [id number] ICU-C16) Document 08/30/17 09:00 [id number] (Rec: 08/30/17 09:20 [id number] ICU-C10) Document 08/30/17 13:00 [id number] (Rec: 08/30/17 13:04 [id number] ISDEMO-M05 ) Document 08/30/17 18:00 [id number] (Rec: 08/30/17 18:07 [id number] ICU-C10) Document 08/31/17 09:00 [id number] (Rec: 08/31/17 13:16 [id number] ICU-C16) Document 08/31/17 13:00 [id number] (Rec: 08/31/17 13:23 [id number] ICU-C16) Intake and Output Start: 08/28/17 14: 12 Freq: 06,14,22 Status: Active Protocol: Document 08/28/17 22:00 [id number] (Rec: 08/29/17 01:40 [id number] ICU-C16) Document 08/29/17 06:00 [id number] (Rec: 08/29/17 06:11 [id number] ICU-C16) Document 08/29/17 07:53 [id number] (Rec: 08/29/17 07:54 [id number] ICU-C20) Document 08/29/17 07:56 [id number] (Rec: 08/29/17 07:56 [id number] ICU-C16) Document 08/29/17 10:40 [id number] (Rec: 08/29/17 10:40 [id number] ICU-C16) Document 08/29/17 14:00 [id number] (Rec: 08/29/17 14:01 [id number] ICU-C16) Document 08/29/17 14:58 [id number] (Rec: 08/29/17 14:59 [id number] ICU-C16) Document 08/29/17 18:45 [id number] (Rec: 08/29/17 18:45 [id number] ICU-C20) Document 08/29/17 22:00 [id number] (Rec: 08/30/17 00:30 [id number] ICU-C25) Document 08/30/17 06:00 [id number] (Rec: 08/30/17 07:04 [id number] ICU-C25) Document 08/30/17 14:09 [id number] (Rec: 08/30/17 14:09 [id number] ICU-C10) Document 08/30/17 19:30 [id number] (Rec: 08/31/17 01:00 [id number] ICU-C20) Document 08/30/17 22:00 [id number] (Rec: 08/30/17 23:24 [id number] ICU-C16) Document 08/31/17 05:03 [id number] (Rec: 08/31/17 05:04 [id number] ICU-C20) Document 08/31/17 14:00 [id number] (Rec: 08/31/17 14:20 [id number] [facility] ) General Impression: Pleasant, confused, conversant elderly man with distended abdomen lying in bed. Head: Symmetrical Eyes: No Scleral Icterus, PERRLA Ears/Nose/Mouth/Throat: - - dry mm, retained phlegm on palate, no gag reflex Neck: NL Appearance and Movements; NL JVP, Trachea Midline Cardiovascular: NL Sounds; No Murmurs; No JVD, RRR Respiratory: Symmetrical Chest Expansion and Respiratory Effort Abdominal: No Hepatosplenomegaly - Abdomen obese. Extremities: No Clubbing, Cyanosis Neurological: - - Tries to follow commands, O to self only, moves all extremities, NO GAG REFLEX - Assessment Assessment: This man has suffered a large intracranial bleed, and is actually improving somewhat over the three days he has been here. He is still in process of attempting to get his BP under control. He has been NPO, and although he has not had a formal swallow evaluation that I can find, he has no appreciable gag reflex to my exam. I spoke to his HCP about the prospects, and ascertained that neither the patient nor his HCP would want feeding tubes or any other ANA, and comfort measures are the preferred option. I completed the MOLST Part E with the HCP over the phone, and he will sign the form when he next visits. The patient may continue to improve, but the HCP would like hospice services for his uncle, and would opt for the [facility] residence or a SNF with hospice services, if the patient reaches a point of no longer needing acute hospitalization. At this time, the patient certainly qualifies for hospice care , with a primary diagnosis of ICH and a secondary of dysphagia. Thanks for asking for palliative input. - Plan Consult Plan (MU): Hospice - Time On Unit Date of Evaluation: 08/31/17 Hospice Consult Time in: 16:40 Hospice Consult Time Out: 17:35 Hospice Consult Time Total: 55
--- NOTE | 2017-08-31 18:01 | PN ---
Subjective Date of Service: 08/31/17 Interval History: Seen and examined events noted more awake today remains on cardene drip Objective Active Medications: Clonidine HCl (Gnkrxigk-Qcs-5 0.3 Mg Patch*) 0.3 mg TRANSDERM Q7D [facility] Last Admin: 08/30/17 13:02 Dose: 0.3 mg Levetiracetam (Keppra Iv Premix*) 500 mg in 100 mls @ 400 mls/hr IV Q12H [facility] Last Admin: 08/31/17 09:37 Dose: 400 mls/hr Nicardipine/Sodium Chloride (Cardene 0.1mg/Ml Ivpremix*) 20 mg in 200 mls @ 30 mls/hr IV .(as Initial Rate) [facility] PRN Reason: 3 MG/HR Last Admin: 08/31/17 17:26 Dose: 30 mls/hr Labetalol HCl (Trandate Iv*) 10 mg IV PUSH Q4H PRN PRN Reason: BLOOD PRESSURE Last Admin: 08/30/17 23:25 Dose: 10 mg Morphine Sulfate (Morphine Inj (Syringe)*) 2 mg IV Q4H PRN PRN Reason: PAIN - MILD Nitroglycerin (Nitroglycerin 10 Mg Patch*) 1 patch TRANSDERM DAILY [facility] Last Admin: 08/31/17 12:46 Dose: 1 patch Ondansetron HCl (Zofran Inj*) 4 mg IV Q4H PRN PRN Reason: NAUSEA Pharmacy Profile Note (Nitro Patch/Oint Remove*) 1 note PATCH OFF BEDTIME [facility] Sertraline HCl (Zoloft*) 25 mg PO DAILY [facility] Last Admin: 08/31/17 14:21 Dose: Not Given Vital Signs - 8 hr 08/31/17 08/31/17 08/31/17 10:00 10:15 10:30 Pulse Rate 84 84 89 Respiratory 18 20 12 Rate Blood Pressure 150/76 151/72 (mmHg) O2 Sat by Pulse 97 97 94 Oximetry 08/31/17 08/31/17 08/31/17 10:31 10:45 11:00 Pulse Rate 88 87 86 Respiratory 14 15 21 Rate Blood Pressure 136/90 149/66 (mmHg) O2 Sat by Pulse 94 92 91 Oximetry 08/31/17 08/31/17 08/31/17 11:01 11:15 11:30 Pulse Rate 86 84 76 Respiratory 23 14 20 Rate Blood Pressure 144/70 158/62 144/70 (mmHg) O2 Sat by Pulse 95 97 98 Oximetry 08/31/17 08/31/17 08/31/17 11:45 12:00 12:16 Pulse Rate 79 86 92 Respiratory 21 14 12 Rate Blood Pressure 131/66 145/71 141/68 (mmHg) O2 Sat by Pulse 98 97 96 Oximetry 08/31/17 08/31/17 08/31/17 12:30 12:31 12:45 Pulse Rate 78 83 80 Respiratory 21 12 15 Rate Blood Pressure 143/68 121/93 (mmHg) O2 Sat by Pulse 96 96 98 Oximetry 08/31/17 08/31/17 08/31/17 13:00 13:01 13:15 Pulse Rate 76 101 75 Respiratory 14 16 20 Rate Blood Pressure 143/72 140/69 (mmHg) O2 Sat by Pulse 98 98 92 Oximetry 08/31/17 08/31/17 08/31/17 13:30 13:31 13:45 Pulse Rate 74 73 73 Respiratory 16 20 17 Rate Blood Pressure 133/67 134/67 (mmHg) O2 Sat by Pulse 91 91 91 Oximetry 08/31/17 08/31/17 08/31/17 14:00 14:01 14:15 Pulse Rate 73 72 80 Respiratory 18 18 14 Rate Blood Pressure 130/67 151/76 (mmHg) O2 Sat by Pulse 91 91 93 Oximetry 08/31/17 08/31/17 08/31/17 14:30 14:45 15:00 Pulse Rate 80 81 84 Respiratory 25 18 27 Rate Blood Pressure 155/74 155/80 149/83 (mmHg) O2 Sat by Pulse 92 92 92 Oximetry 08/31/17 08/31/17 08/31/17 15:01 15:15 15:30 Pulse Rate 82 80 90 Respiratory 20 13 13 Rate Blood Pressure 152/72 146/76 (mmHg) O2 Sat by Pulse 92 93 94 Oximetry 08/31/17 08/31/17 08/31/17 15:45 16:00 16:01 Pulse Rate 99 95 100 Respiratory 14 12 11 Rate Blood Pressure 141/76 142/71 (mmHg) O2 Sat by Pulse 92 93 91 Oximetry 08/31/17 08/31/17 08/31/17 16:15 16:30 16:45 Pulse Rate 97 89 91 Respiratory 20 13 13 Rate Blood Pressure 149/71 136/63 143/69 (mmHg) O2 Sat by Pulse 91 93 93 Oximetry 08/31/17 08/31/17 17:00 17:15 Pulse Rate 91 80 Respiratory 18 20 Rate Blood Pressure 148/67 150/69 (mmHg) O2 Sat by Pulse 94 93 Oximetry Oxygen Devices in Use Now: Nasal Cannula Appearance: NAD Eyes: No Scleral Icterus Ears/Nose/Mouth/Throat: - - dry MM Neck: NL Appearance and Movements; NL JVP, Trachea Midline Respiratory: Symmetrical Chest Expansion and Respiratory Effort, Clear to Auscultation Cardiovascular: RRR Abdominal: NL Sounds; No Tenderness; No Distention Skin: No Rash or Ulcers Neurological: - - AOx1 to self, follow simple commands, left hemiparesis Result Diagrams: 08/28/17 10:20 08/28/17 10:20 Additional Lab and Data: Lab Results 08/28/17 08/28/17 08/28/17 Range/Units 10:20 10:20 10:20 WBC 8.7 (3.5-10.8) 10^3/ul RBC 4.32 (4.0-5.4) 10^6/ul Hgb 13.4 L (14.0-18.0) g/dl Hct 39 L (42-52) % MCV 91 (80-94) fL MCH 31 (27-31) pg MCHC 34 (31-36) g/dl RDW 14 (10.5-15) % Plt Count 132 L (150-450) 10^3/ul MPV 9 (7.4-10.4) um3 Neut % (Auto) 89.3 H (38-83) % Lymph % (Auto) 4.3 L (25-47) % [place] % (Auto) 6.1 (1-9) % Eos % (Auto) 0 (0-6) % Baso % (Auto) 0.3 (0-2) % Absolute Neuts (auto) 7.8 H (1.5-7.7) 10^3/ul Absolute Lymphs (auto) 0.4 L (1.0-4.8) 10^3/ul Absolute Monos (auto) 0.5 (0-0.8) 10^3/ul Absolute Eos (auto) 0 (0-0.6) 10^3/ul Absolute Basos (auto) 0 (0-0.2) 10^3/ul Absolute Nucleated RBC 0 10^3/ul Nucleated RBC % 0 INR (Anticoag Therapy) 1.03 H (0.77-1.02) APTT 29.3 (26.0-36.3) seconds Sodium 140 (133-145) mmol/L Potassium 3.6 (3.5-5.0) mmol/L Chloride 102 (101-111) mmol/L Carbon Dioxide 31 (22-32) mmol/L Anion Gap 7 (2-11) mmol/L BUN 14 (6-24) mg/dL Creatinine 0.65 L (0.67-1.17) mg/dL Est GFR ( Amer) 148.8 (>60) Est GFR (Non-Af Amer) 115.7 (>60) BUN/Creatinine Ratio 21.5 H (8-20) Glucose 226 H (70-100) mg/dL Lactic Acid (0.5-2.0) mmol/L Calcium 9.1 (8.6-10.3) mg/dL Total Bilirubin 1.10 H (0.2-1.0) mg/dL AST 17 (13-39) U/L ALT 12 (7-52) U/L Alkaline Phosphatase 89 (34-104) U/L Troponin I 0.02 (<0.04) ng/mL Total Protein 6.7 (6.4-8.9) g/dL Albumin 3.9 (3.2-5.2) g/dL Globulin 2.8 (2-4) g/dL Albumin/Globulin Ratio 1.4 (1-3) 08/28/17 Range/Units 10:20 WBC (3.5-10.8) 10^3/ul RBC (4.0-5.4) 10^6/ul Hgb (14.0-18.0) g/dl Hct (42-52) % MCV (80-94) fL MCH (27-31) pg MCHC (31-36) g/dl RDW (10.5-15) % Plt Count (150-450) 10^3/ul MPV (7.4-10.4) um3 Neut % (Auto) (38-83) % Lymph % (Auto) (25-47) % [place] % (Auto) (1-9) % Eos % (Auto) (0-6) % Baso % (Auto) (0-2) % Absolute Neuts (auto) (1.5-7.7) 10^3/ul Absolute Lymphs (auto) (1.0-4.8) 10^3/ul Absolute Monos (auto) (0-0.8) 10^3/ul Absolute Eos (auto) (0-0.6) 10^3/ul Absolute Basos (auto) (0-0.2) 10^3/ul Absolute Nucleated RBC 10^3/ul Nucleated RBC % INR (Anticoag Therapy) (0.77-1.02) APTT (26.0-36.3) seconds Sodium (133-145) mmol/L Potassium (3.5-5.0) mmol/L Chloride (101-111) mmol/L Carbon Dioxide (22-32) mmol/L Anion Gap (2-11) mmol/L BUN (6-24) mg/dL Creatinine (0.67-1.17) mg/dL Est GFR ( Amer) (>60) Est GFR (Non-Af Amer) (>60) BUN/Creatinine Ratio (8-20) Glucose (70-100) mg/dL Lactic Acid 1.7 (0.5-2.0) mmol/L Calcium (8.6-10.3) mg/dL Total Bilirubin (0.2-1.0) mg/dL AST (13-39) U/L ALT (7-52) U/L Alkaline Phosphatase (34-104) U/L Troponin I (<0.04) ng/mL Total Protein (6.4-8.9) g/dL Albumin (3.2-5.2) g/dL Globulin (2-4) g/dL Albumin/Globulin Ratio (1-3) Assess/Plan/Problems-Billing Assessment: 89 yo M found down found with multiple large ICH - Patient Problems (1) Intracerebral bleed Comment: Jovani is the HCP No surgical management BP management, mainatain SBP<150 Goal is comfort -but BP control should still be achieved (2) Hypertension Comment: Nicardipine gtt increase clonadine patch added nitro patch swallow eval (3) Goals of care, counseling/discussion Comment: Discussion with Edward/HCP Goal should be comfort. No planned intervention In agreement with hospice consult 1st choice for placement when ready would be [facility] or [facility] (4) DVT prophylaxis Comment: SCDs Status and Disposition: to floor when nicardipine off
[2017-08-31] MEDS: Morphine INJ* 2 MG/ML 1 ML SYRINGE (TWO MG - NEW SYRINGE VERSION) IV PRN (20:48)
[2017-08-31] MEDS: Nitro Patch/OINT Remove PATCH OFF SCH (21:18)
[2017-09-01] MEDS: niCARdipine 0.1MG/ML IVPREMIX* 20 MG/200 ML BAG IV SCH ×3 (00:18→08:09)
[2017-09-01] MEDS: Nitroglycerin 0.4 MG/HR PATCH* (10 MG) TRANSDERM SCH (09:05)
[2017-09-01] MEDS: levETIRAcetam 500 MG IVPREMIX* 500 MG/100 ML BAG IV SCH ×2 (09:34→21:06)
[2017-09-01] MEDS: Sertraline* 25 MG TAB PO SCH (09:51)
[2017-09-01] MEDS: Labetalol IV* 5 MG/ML 20 ML VIAL IV PUSH PRN ×2 (11:15→23:52)
--- NOTE | 2017-09-01 15:25 | PN ---
Subjective Date of Service: 09/01/17 Interval History: Seen and examined at bedside Mental status improving Passed swallowed evaluation Objective Active Medications: Amlodipine Besylate (Norvasc Tab*) 10 mg PO DAILY [facility] Clonidine HCl (Miyxzbmb-Mou-0 0.3 Mg Patch*) 0.3 mg TRANSDERM Q7D [facility] Last Admin: 08/30/17 13:02 Dose: 0.3 mg Levetiracetam (Keppra Iv Premix*) 500 mg in 100 mls @ 400 mls/hr IV Q12H [facility] Last Admin: 09/01/17 09:34 Dose: 400 mls/hr Labetalol HCl (Trandate Iv*) 10 mg IV PUSH Q4H PRN PRN Reason: BLOOD PRESSURE Last Admin: 09/01/17 11:15 Dose: 10 mg Morphine Sulfate (Morphine Inj (Syringe)*) 2 mg IV Q4H PRN PRN Reason: PAIN - MILD Last Admin: 08/31/17 20:48 Dose: 2 mg Nitroglycerin (Nitroglycerin 10 Mg Patch*) 1 patch TRANSDERM DAILY [facility] Last Admin: 09/01/17 09:05 Dose: 1 patch Ondansetron HCl (Zofran Inj*) 4 mg IV Q4H PRN PRN Reason: NAUSEA Pharmacy Profile Note (Nitro Patch/Oint Remove*) 1 note PATCH OFF BEDTIME [facility] Last Admin: 08/31/17 21:18 Dose: 1 applic Sertraline HCl (Zoloft*) 25 mg PO DAILY [facility] Last Admin: 09/01/17 09:51 Dose: Not Given Vital Signs - 8 hr 09/01/17 09/01/17 09/01/17 07:30 07:37 07:52 Temperature 97.1 F Pulse Rate 76 78 Respiratory 16 15 Rate Blood Pressure 133/66 128/59 (mmHg) O2 Sat by Pulse 94 94 Oximetry 09/01/17 09/01/17 09/01/17 08:00 08:01 08:15 Temperature Pulse Rate 95 88 91 Respiratory 18 20 15 Rate Blood Pressure 155/91 157/67 (mmHg) O2 Sat by Pulse 91 92 93 Oximetry 09/01/17 09/01/17 09/01/17 08:27 08:30 08:45 Temperature Pulse Rate 91 93 90 Respiratory 18 18 Rate Blood Pressure 149/90 142/81 147/76 (mmHg) O2 Sat by Pulse 91 90 91 Oximetry 09/01/17 09/01/17 09/01/17 09:00 09:05 09:15 Temperature Pulse Rate 97 93 76 Respiratory 16 21 18 Rate Blood Pressure 163/54 143/57 (mmHg) O2 Sat by Pulse 89 93 94 Oximetry 09/01/17 09/01/17 09/01/17 09:30 09:31 09:46 Temperature Pulse Rate 88 100 Respiratory 20 18 18 Rate Blood Pressure 151/68 137/71 (mmHg) O2 Sat by Pulse 94 94 Oximetry 09/01/17 09/01/17 09/01/17 10:00 10:01 10:15 Temperature Pulse Rate 89 89 95 Respiratory 15 17 19 Rate Blood Pressure 127/105 144/86 (mmHg) O2 Sat by Pulse 92 94 94 Oximetry 09/01/17 09/01/17 09/01/17 10:30 10:45 11:00 Temperature Pulse Rate 86 79 94 Respiratory 9 18 17 Rate Blood Pressure 156/71 152/68 161/64 (mmHg) O2 Sat by Pulse 92 93 93 Oximetry 09/01/17 09/01/17 09/01/17 11:30 11:42 11:45 Temperature 98.7 F Pulse Rate 79 83 Respiratory 17 19 Rate Blood Pressure 137/69 145/67 (mmHg) O2 Sat by Pulse 94 93 Oximetry 09/01/17 09/01/17 09/01/17 12:00 12:01 12:15 Temperature Pulse Rate 81 78 80 Respiratory 14 11 10 Rate Blood Pressure 131/70 144/70 (mmHg) O2 Sat by Pulse 90 94 91 Oximetry 09/01/17 09/01/17 09/01/17 12:30 12:45 13:00 Temperature Pulse Rate 84 80 83 Respiratory 21 19 13 Rate Blood Pressure 151/77 150/72 154/69 (mmHg) O2 Sat by Pulse 91 92 90 Oximetry 09/01/17 09/01/17 13:15 13:30 Temperature Pulse Rate 80 81 Respiratory 17 13 Rate Blood Pressure 157/72 153/72 (mmHg) O2 Sat by Pulse 90 91 Oximetry Oxygen Devices in Use Now: Nasal Cannula Appearance: Lying flat, NAD Eyes: No Scleral Icterus, PERRLA Ears/Nose/Mouth/Throat: Mucous Membranes Moist Neck: NL Appearance and Movements; NL JVP, Trachea Midline Respiratory: Symmetrical Chest Expansion and Respiratory Effort, Clear to Auscultation Abdominal: NL Sounds; No Tenderness; No Distention Neurological: - - Awake and interactive, AOx1, left hemiparesis Result Diagrams: 08/28/17 10:20 08/28/17 10:20 Additional Lab and Data: Lab Results 08/28/17 08/28/17 08/28/17 Range/Units 10:20 10:20 10:20 WBC 8.7 (3.5-10.8) 10^3/ul RBC 4.32 (4.0-5.4) 10^6/ul Hgb 13.4 L (14.0-18.0) g/dl Hct 39 L (42-52) % MCV 91 (80-94) fL MCH 31 (27-31) pg MCHC 34 (31-36) g/dl RDW 14 (10.5-15) % Plt Count 132 L (150-450) 10^3/ul MPV 9 (7.4-10.4) um3 Neut % (Auto) 89.3 H (38-83) % Lymph % (Auto) 4.3 L (25-47) % [place] % (Auto) 6.1 (1-9) % Eos % (Auto) 0 (0-6) % Baso % (Auto) 0.3 (0-2) % Absolute Neuts (auto) 7.8 H (1.5-7.7) 10^3/ul Absolute Lymphs (auto) 0.4 L (1.0-4.8) 10^3/ul Absolute Monos (auto) 0.5 (0-0.8) 10^3/ul Absolute Eos (auto) 0 (0-0.6) 10^3/ul Absolute Basos (auto) 0 (0-0.2) 10^3/ul Absolute Nucleated RBC 0 10^3/ul Nucleated RBC % 0 INR (Anticoag Therapy) 1.03 H (0.77-1.02) APTT 29.3 (26.0-36.3) seconds Sodium 140 (133-145) mmol/L Potassium 3.6 (3.5-5.0) mmol/L Chloride 102 (101-111) mmol/L Carbon Dioxide 31 (22-32) mmol/L Anion Gap 7 (2-11) mmol/L BUN 14 (6-24) mg/dL Creatinine 0.65 L (0.67-1.17) mg/dL Est GFR ( Amer) 148.8 (>60) Est GFR (Non-Af Amer) 115.7 (>60) BUN/Creatinine Ratio 21.5 H (8-20) Glucose 226 H (70-100) mg/dL Lactic Acid (0.5-2.0) mmol/L Calcium 9.1 (8.6-10.3) mg/dL Total Bilirubin 1.10 H (0.2-1.0) mg/dL AST 17 (13-39) U/L ALT 12 (7-52) U/L Alkaline Phosphatase 89 (34-104) U/L Troponin I 0.02 (<0.04) ng/mL Total Protein 6.7 (6.4-8.9) g/dL Albumin 3.9 (3.2-5.2) g/dL Globulin 2.8 (2-4) g/dL Albumin/Globulin Ratio 1.4 (1-3) // Range/Units 10:20 WBC (3.5-10.8) 10^3/ul RBC (4.0-5.4) 10^6/ul Hgb (14.0-18.0) g/dl Hct (42-52) % MCV (80-94) fL MCH (27-31) pg MCHC (31-36) g/dl RDW (10.5-15) % Plt Count (150-450) 10^3/ul MPV (7.4-10.4) um3 Neut % (Auto) (38-83) % Lymph % (Auto) (25-47) % Fountain % (Auto) (1-9) % Eos % (Auto) (0-6) % Baso % (Auto) (0-2) % Absolute Neuts (auto) (1.5-7.7) 10^3/ul Absolute Lymphs (auto) (1.0-4.8) 10^3/ul Absolute Monos (auto) (0-0.8) 10^3/ul Absolute Eos (auto) (0-0.6) 10^3/ul Absolute Basos (auto) (0-0.2) 10^3/ul Absolute Nucleated RBC 10^3/ul Nucleated RBC % INR (Anticoag Therapy) (0.77-1.02) APTT (26.0-36.3) seconds Sodium (133-145) mmol/L Potassium (3.5-5.0) mmol/L Chloride (101-111) mmol/L Carbon Dioxide (22-32) mmol/L Anion Gap (2-11) mmol/L BUN (6-24) mg/dL Creatinine (0.67-1.17) mg/dL Est GFR ( Amer) (>60) Est GFR (Non-Af Amer) (>60) BUN/Creatinine Ratio (8-20) Glucose (70-100) mg/dL Lactic Acid 1.7 (0.5-2.0) mmol/L Calcium (8.6-10.3) mg/dL Total Bilirubin (0.2-1.0) mg/dL AST (13-39) U/L ALT (7-52) U/L Alkaline Phosphatase (34-104) U/L Troponin I (<0.04) ng/mL Total Protein (6.4-8.9) g/dL Albumin (3.2-5.2) g/dL Globulin (2-4) g/dL Albumin/Globulin Ratio (1-3) Assess/Plan/Problems-Billing Assessment: 89 yo M found down found with multiple large ICH - Patient Problems (1) Intracerebral bleed Comment: [employer] is the HCP No surgical management BP management, target BP SBP<150 Advanced to pureed diet (2) Hypertension Comment: Nicardipine off overnight 09/01 clonadine patch and nitro patch passed swallow eval. Add norvasc 09/01 (3) Goals of care, counseling/discussion Comment: Discussion with Edward/HCP Goal should be comfort. No planned intervention In agreement with hospice consult 1st choice for placement when ready [facility] be [facility] (4) DVT prophylaxis Comment: SCDs Status and Disposition: to floor
[2017-09-01] MEDS: amLODIPine TAB* 5 MG PO SCH (16:24)
[2017-09-01] MEDS: Nitro Patch/OINT Remove PATCH OFF SCH (21:07)
[2017-09-02] MEDS: amLODIPine TAB* 5 MG PO SCH (07:40)
[2017-09-02] MEDS: Sertraline* 25 MG TAB PO SCH (07:41)
[2017-09-02] MEDS: Nitroglycerin 0.4 MG/HR PATCH* (10 MG) TRANSDERM SCH (07:41)
[2017-09-02] MEDS: Morphine INJ* 2 MG/ML 1 ML SYRINGE (TWO MG - NEW SYRINGE VERSION) IV PRN (07:56)
[2017-09-02] MEDS ORDERED: Acetaminophen TAB* 325 MG PO PRN (08:09)
[2017-09-02] MEDS: levETIRAcetam 500 MG IVPREMIX* 500 MG/100 ML BAG IV SCH (09:24)
--- NOTE | 2017-09-02 11:50 | PN ---
Subjective Date of Service: 09/02/17 Interval History: Patient not able to make his needs known. Objective Active Medications: Acetaminophen (Tylenol Tab*) 650 mg PO Q4H PRN PRN Reason: PAIN Amlodipine Besylate (Norvasc Tab*) 10 mg PO DAILY [facility] Last Admin: 09/02/17 07:40 Dose: 10 mg Clonidine HCl (Iajfavep-Fxw-4 0.3 Mg Patch*) 0.3 mg TRANSDERM Q7D [facility] Last Admin: 08/30/17 13:02 Dose: 0.3 mg Labetalol HCl (Trandate Iv*) 10 mg IV PUSH Q4H PRN PRN Reason: BLOOD PRESSURE Last Admin: 09/01/17 23:52 Dose: 10 mg Levetiracetam (Keppra Tab*) 500 mg PO BID [facility] Morphine Sulfate (Morphine Inj (Syringe)*) 2 mg IV Q4H PRN PRN Reason: PAIN - MILD Last Admin: 09/02/17 07:56 Dose: 2 mg Nitroglycerin (Nitroglycerin 10 Mg Patch*) 1 patch TRANSDERM DAILY [facility] Last Admin: 09/02/17 07:41 Dose: 1 patch Ondansetron HCl (Zofran Inj*) 4 mg IV Q4H PRN PRN Reason: NAUSEA Pharmacy Profile Note (Nitro Patch/Oint Remove*) 1 note PATCH OFF BEDTIME [facility] Last Admin: 09/01/17 21:07 Dose: 1 applic Sertraline HCl (Zoloft*) 25 mg PO DAILY [facility] Last Admin: 09/02/17 07:41 Dose: 25 mg Vital Signs - 8 hr 09/02/17 09/02/17 09/02/17 03:51 07:38 07:56 Temperature 99.0 F 100.2 F Pulse Rate 86 69 Respiratory 18 22 22 Rate Blood Pressure 154/65 159/73 (mmHg) O2 Sat by Pulse 92 93 Oximetry 09/02/17 09/02/17 09/02/17 08:00 09:23 09:41 Temperature 99.1 F Pulse Rate Respiratory 20 20 Rate Blood Pressure (mmHg) O2 Sat by Pulse Oximetry Oxygen Devices in Use Now: Nasal Cannula Appearance: Stuporous. Head partly up in bed. Neutral affect. Looks comfortable. Eyes: No Scleral Icterus Neck: NL Appearance and Movements; NL JVP, No Thyroid Enlargement, Masses Respiratory: Symmetrical Chest Expansion and Respiratory Effort, Clear to Auscultation, Clear to Percussion Cardiovascular: NL Sounds; No Murmurs; No JVD, RRR, No Edema, - Extremities: No Edema, No Clubbing, Cyanosis, - Skin: No Rash or Ulcers, No Nodules or Sclerosis, - Neurological: NL Sensation, - - Difficult to arouse. Speech slurred, not appropriate, mostly sentence fragments. No tremor. Result Diagrams: 08/28/17 10:20 08/28/17 10:20 Additional Lab and Data: Lab Results 08/28/17 08/28/17 08/28/17 Range/Units 10:20 10:20 10:20 WBC 8.7 (3.5-10.8) 10^3/ul RBC 4.32 (4.0-5.4) 10^6/ul Hgb 13.4 L (14.0-18.0) g/dl Hct 39 L (42-52) % MCV 91 (80-94) fL MCH 31 (27-31) pg MCHC 34 (31-36) g/dl RDW 14 (10.5-15) % Plt Count 132 L (150-450) 10^3/ul MPV 9 (7.4-10.4) um3 Neut % (Auto) 89.3 H (38-83) % Lymph % (Auto) 4.3 L (25-47) % [place] % (Auto) 6.1 (1-9) % Eos % (Auto) 0 (0-6) % Baso % (Auto) 0.3 (0-2) % Absolute Neuts (auto) 7.8 H (1.5-7.7) 10^3/ul Absolute Lymphs (auto) 0.4 L (1.0-4.8) 10^3/ul Absolute Monos (auto) 0.5 (0-0.8) 10^3/ul Absolute Eos (auto) 0 (0-0.6) 10^3/ul Absolute Basos (auto) 0 (0-0.2) 10^3/ul Absolute Nucleated RBC 0 10^3/ul Nucleated RBC % 0 INR (Anticoag Therapy) 1.03 H (0.77-1.02) APTT 29.3 (26.0-36.3) seconds Sodium 140 (133-145) mmol/L Potassium 3.6 (3.5-5.0) mmol/L Chloride 102 (101-111) mmol/L Carbon Dioxide 31 (22-32) mmol/L Anion Gap 7 (2-11) mmol/L BUN 14 (6-24) mg/dL Creatinine 0.65 L (0.67-1.17) mg/dL Est GFR ( Amer) 148.8 (>60) Est GFR (Non-Af Amer) 115.7 (>60) BUN/Creatinine Ratio 21.5 H (8-20) Glucose 226 H (70-100) mg/dL Lactic Acid (0.5-2.0) mmol/L Calcium 9.1 (8.6-10.3) mg/dL Total Bilirubin 1.10 H (0.2-1.0) mg/dL AST 17 (13-39) U/L ALT 12 (7-52) U/L Alkaline Phosphatase 89 (34-104) U/L Troponin I 0.02 (<0.04) ng/mL Total Protein 6.7 (6.4-8.9) g/dL Albumin 3.9 (3.2-5.2) g/dL Globulin 2.8 (2-4) g/dL Albumin/Globulin Ratio 1.4 (1-3) // Range/Units 10:20 WBC (3.5-10.8) 10^3/ul RBC (4.0-5.4) 10^6/ul Hgb (14.0-18.0) g/dl Hct (42-52) % MCV (80-94) fL MCH (27-31) pg MCHC (31-36) g/dl RDW (10.5-15) % Plt Count (150-450) 10^3/ul MPV (7.4-10.4) um3 Neut % (Auto) (38-83) % Lymph % (Auto) (25-47) % [place] % (Auto) (1-9) % Eos % (Auto) (0-6) % Baso % (Auto) (0-2) % Absolute Neuts (auto) (1.5-7.7) 10^3/ul Absolute Lymphs (auto) (1.0-4.8) 10^3/ul Absolute Monos (auto) (0-0.8) 10^3/ul Absolute Eos (auto) (0-0.6) 10^3/ul Absolute Basos (auto) (0-0.2) 10^3/ul Absolute Nucleated RBC 10^3/ul Nucleated RBC % INR (Anticoag Therapy) (0.77-1.02) APTT (26.0-36.3) seconds Sodium (133-145) mmol/L Potassium (3.5-5.0) mmol/L Chloride (101-111) mmol/L Carbon Dioxide (22-32) mmol/L Anion Gap (2-11) mmol/L BUN (6-24) mg/dL Creatinine (0.67-1.17) mg/dL Est GFR ( Amer) (>60) Est GFR (Non-Af Amer) (>60) BUN/Creatinine Ratio (8-20) Glucose (70-100) mg/dL Lactic Acid 1.7 (0.5-2.0) mmol/L Calcium (8.6-10.3) mg/dL Total Bilirubin (0.2-1.0) mg/dL AST (13-39) U/L ALT (7-52) U/L Alkaline Phosphatase (34-104) U/L Troponin I (<0.04) ng/mL Total Protein (6.4-8.9) g/dL Albumin (3.2-5.2) g/dL Globulin (2-4) g/dL Albumin/Globulin Ratio (1-3) Assess/Plan/Problems-Billing Assessment: 89 yo M found down found with multiple large ICH - Patient Problems (1) Intracerebral bleed Current Visit: Yes Status: Acute Code(s): I61.9 - NONTRAUMATIC INTRACEREBRAL HEMORRHAGE, UNSPECIFIED SNOMED Code(s): 502413793 Comment: Jovani is the HCP No surgical management BP management, target BP SBP<150 Advanced to pureed diet, but oral intake poor. Hopefully can take levetriacetam PO. (2) Hypertension Current Visit: Yes Status: Acute Code(s): I10 - ESSENTIAL (PRIMARY) HYPERTENSION SNOMED Code(s): 25603944 Comment: Nicardipine off overnight 09/01 clonidine patch and nitro patch passed swallow eval. Amlodpine started PM 09/01. (3) Hospice care Current Visit: Yes Status: Acute Comment: Patient accepted for Hospice by Dr. Sutton. Caprice has requested this. Stop sertraline, order PNR MS, lorazepam, and atropine. Status and Disposition: to floor
[2017-09-02] MEDS ORDERED: Atropine 1% (ORAL/SL)* 15 ML BTL SL PRN (11:57)
[2017-09-02] MEDS: LORazepam TAB(*) 0.5 MG SL PRN (19:20)
[2017-09-02] MEDS: levETIRAcetam TAB* 500 MG PO SCH (21:15)
[2017-09-02] MEDS: Nitro Patch/OINT Remove PATCH OFF SCH (22:14)
[2017-09-03] MEDS: LORazepam TAB(*) 0.5 MG SL PRN (02:09)
[2017-09-03] MEDS: Morphine ORAL CONCENTRATE* 5 MG/0.25 ML ORAL.SYRIN SL PRN ×3 (03:40→23:24)
[2017-09-03] MEDS: Labetalol IV* 5 MG/ML 20 ML VIAL IV PUSH PRN (05:18)
--- NOTE | 2017-09-03 07:45 | PN ---
Subjective Date of Service: 09/03/17 Interval History: He denies pain and does not offer any c/o. Objective Active Medications: Acetaminophen (Tylenol Tab*) 650 mg PO Q4H PRN PRN Reason: PAIN Amlodipine Besylate (Norvasc Tab*) [address] [facility] Last Admin: 09/02/17 07:40 Dose: 10 mg Atropine Sulfate (Atropine 1% (Oral/Sl)*) 2 drop SL Q2H PRN PRN Reason: DISCOMFORT Clonidine HCl (Ouextkkz-Xzg-9 0.3 Mg Patch*) 0.[address] [facility] Last Admin: 08/30/17 13:02 Dose: 0.3 mg Labetalol HCl (Trandate Iv*) 10 mg IV PUSH Q4H PRN PRN Reason: BLOOD PRESSURE Last Admin: 09/03/17 05:18 Dose: 10 mg Levetiracetam (Keppra Tab*) [address] [facility] Last Admin: 09/02/17 21:15 Dose: 500 mg Lorazepam (Ativan Tab(*)) 0.5 mg SL Q4H PRN PRN Reason: ANXIETY Last Admin: 09/03/17 02:09 Dose: 0.5 mg Metoprolol Tartrate (Lopressor Tab*) [address] [facility] Morphine Sulfate (Morphine Inj (Syringe)*) 2 mg IV Q4H PRN PRN Reason: PAIN - MILD Last Admin: 09/02/17 07:56 Dose: 2 mg Morphine Sulfate (Morphine Oral Concentrate*) 5 mg SL Q30M PRN PRN Reason: PAIN Nitroglycerin (Nitroglycerin 10 Mg Patch*) [address] [facility] Last Admin: 09/02/17 07:41 Dose: 1 patch Ondansetron HCl (Zofran Inj*) 4 mg IV Q4H PRN PRN Reason: NAUSEA Pharmacy Profile Note (Nitro Patch/Oint Remove*) [address] OFF [address]EDTIME [facility] Last Admin: 09/02/17 22:14 Dose: 1 applic Sertraline HCl (Zoloft*) [address] [facility] Last Admin: 09/02/17 07:41 Dose: 25 mg Vital Signs - 8 hr 09/02/17 09/03/17 09/03/17 23:52 02:09 02:27 Temperature 98.2 F Pulse Rate 79 Respiratory 20 20 Rate Blood Pressure 161/118 170/65 (mmHg) O2 Sat by Pulse 99 Oximetry 09/03/17 04:54 Temperature Pulse Rate Respiratory Rate Blood Pressure 181/87 (mmHg) O2 Sat by Pulse Oximetry Oxygen Devices in Use Now: Nasal Cannula Appearance: Lethargic, partly up in bed. Neutral affect. Looks comfortable. Neck: NL Appearance and Movements; NL JVP, No Thyroid Enlargement, Masses Respiratory: Symmetrical Chest Expansion and Respiratory Effort, Clear to Auscultation, Clear to Percussion Cardiovascular: NL Sounds; No Murmurs; No JVD, RRR, No Edema, - Extremities: No Edema, No Clubbing, Cyanosis, - Skin: No Rash or Ulcers, No Nodules or Sclerosis, - Neurological: NL Sensation - Doesn't move L side. He knows he is in the hospital. He can state his whole name. He gave his age as 89. Result Diagrams: 08/28/17 10:20 08/28/17 10:20 Additional Lab and Data: Lab Results 08/28/17 08/28/17 08/28/17 Range/Units 10:20 10:20 10:20 WBC 8.7 (3.5-10.8) 10^3/ul RBC 4.32 (4.0-5.4) 10^6/ul Hgb 13.4 L (14.0-18.0) g/dl Hct 39 L (42-52) % MCV 91 (80-94) fL MCH 31 (27-31) pg MCHC 34 (31-36) g/dl RDW 14 (10.5-15) % Plt Count 132 L (150-450) 10^3/ul MPV 9 (7.4-10.4) um3 Neut % (Auto) 89.3 H (38-83) % Lymph % (Auto) 4.3 L (25-47) % [place] % (Auto) 6.1 (1-9) % Eos % (Auto) 0 (0-6) % Baso % (Auto) 0.3 (0-2) % Absolute Neuts (auto) 7.8 H (1.5-7.7) 10^3/ul Absolute Lymphs (auto) 0.4 L (1.0-4.8) 10^3/ul Absolute Monos (auto) 0.5 (0-0.8) 10^3/ul Absolute Eos (auto) 0 (0-0.6) 10^3/ul Absolute Basos (auto) 0 (0-0.2) 10^3/ul Absolute Nucleated RBC 0 10^3/ul Nucleated RBC % 0 INR (Anticoag Therapy) 1.03 H (0.77-1.02) APTT 29.3 (26.0-36.3) seconds Sodium 140 (133-145) mmol/L Potassium 3.6 (3.5-5.0) mmol/L Chloride 102 (101-111) mmol/L Carbon Dioxide 31 (22-32) mmol/L Anion Gap 7 (2-11) mmol/L BUN 14 (6-24) mg/dL Creatinine 0.65 L (0.67-1.17) mg/dL Est GFR ( Amer) 148.8 (>60) Est GFR (Non-Af Amer) 115.7 (>60) BUN/Creatinine Ratio 21.5 H (8-20) Glucose 226 H (70-100) mg/dL Lactic Acid (0.5-2.0) mmol/L Calcium 9.1 (8.6-10.3) mg/dL Total Bilirubin 1.10 H (0.2-1.0) mg/dL AST 17 (13-39) U/L ALT 12 (7-52) U/L Alkaline Phosphatase 89 (34-104) U/L Troponin I 0.02 (<0.04) ng/mL Total Protein 6.7 (6.4-8.9) g/dL Albumin 3.9 (3.2-5.2) g/dL Globulin 2.8 (2-4) g/dL Albumin/Globulin Ratio 1.4 (1-3) 08/28/17 Range/Units 10:20 WBC (3.5-10.8) 10^3/ul RBC (4.0-5.4) 10^6/ul Hgb (14.0-18.0) g/dl Hct (42-52) % MCV (80-94) fL MCH (27-31) pg MCHC (31-36) g/dl RDW (10.5-15) % Plt Count (150-450) 10^3/ul MPV (7.4-10.4) um3 Neut % (Auto) (38-83) % Lymph % (Auto) (25-47) % [place] % (Auto) (1-9) % Eos % (Auto) (0-6) % Baso % (Auto) (0-2) % Absolute Neuts (auto) (1.5-7.7) 10^3/ul Absolute Lymphs (auto) (1.0-4.8) 10^3/ul Absolute Monos (auto) (0-0.8) 10^3/ul Absolute Eos (auto) (0-0.6) 10^3/ul Absolute Basos (auto) (0-0.2) 10^3/ul Absolute Nucleated RBC 10^3/ul Nucleated RBC % INR (Anticoag Therapy) (0.77-1.02) APTT (26.0-36.3) seconds Sodium (133-145) mmol/L Potassium (3.5-5.0) mmol/L Chloride (101-111) mmol/L Carbon Dioxide (22-32) mmol/L Anion Gap (2-11) mmol/L BUN (6-24) mg/dL Creatinine (0.67-1.17) mg/dL Est GFR ( Amer) (>60) Est GFR (Non-Af Amer) (>60) BUN/Creatinine Ratio (8-20) Glucose (70-100) mg/dL Lactic Acid 1.7 (0.5-2.0) mmol/L Calcium (8.6-10.3) mg/dL Total Bilirubin (0.2-1.0) mg/dL AST (13-39) U/L ALT (7-52) U/L Alkaline Phosphatase (34-104) U/L Troponin I (<0.04) ng/mL Total Protein (6.4-8.9) g/dL Albumin (3.2-5.2) g/dL Globulin (2-4) g/dL Albumin/Globulin Ratio (1-3) Assess/Plan/Problems-Billing Assessment: 89 yo M found down found with multiple large ICH - Patient Problems (1) Intracerebral bleed Current Visit: Yes Status: Acute Code(s): I61.9 - NONTRAUMATIC INTRACEREBRAL HEMORRHAGE, UNSPECIFIED SNOMED Code(s): 275130163 Comment: Jovani is the HCP No surgical management BP management, target BP SBP<150. Metoprolol added 12 AM. Advanced to pureed diet, but oral intake poor. (2) Hypertension Current Visit: Yes Status: Acute Code(s): I10 - ESSENTIAL (PRIMARY) HYPERTENSION SNOMED Code(s): 00102241 Comment: clonidine patch and nitro patch, amlodipine Metoprolol added 09/03 AM. (3) Hospice care Current Visit: Yes Status: Acute Comment: Patient accepted for Hospice by Dr. Sutton. Caprice has requested this. Stop sertraline, order PNR MS, lorazepam, and atropine. I will try to talk to family members. Status and Disposition: to floor
[2017-09-03] MEDS: Nitroglycerin 0.4 MG/HR PATCH* (10 MG) TRANSDERM SCH (08:22)
[2017-09-03] MEDS: Metoprolol Tartrate TAB* 25 MG PO SCH ×3 (08:28→23:24)
[2017-09-03] MEDS: Sertraline* 25 MG TAB PO SCH (08:28)
[2017-09-03] MEDS: levETIRAcetam TAB* 500 MG PO SCH ×3 (08:30→23:23)
[2017-09-03] MEDS: amLODIPine TAB* 5 MG PO SCH (08:37)
[2017-09-03] MEDS ORDERED: Labetalol IV* 5 MG/ML 20 ML VIAL IV PUSH ONE (09:10)
[2017-09-03 09:24] LABS: ABS Basophils 0.1 10^3/ul (0-0.2); ABS Eosinophils 0.1 10^3/ul (0-0.6); ABS Monocytes 1.1 10^3/ul (0-0.8); ABS Neutrophils 8.2 10^3/ul (1.5-7.7); ABS Nucleated RBC 0 10^3/ul; Eosinophil % 1.4 % (0-6); Hematocrit 38 % (42-52); Lymphocyte % 9.6 % (25-47); Mean Corpuscular HGB Conc 34 g/dl (31-36); Mean Corpuscular Hemoglobin 31 pg (27-31); Mean Corpuscular Volume 90 fL (80-94); Mean Platelet Volume 8 um3 (7.4-10.4); Nucleated Red Blood Cells % 0; Platelet Count 198 10^3/ul (150-450); Red Blood Count 4.23 10^6/ul (4.0-5.4); Red Cell Distribution Width 13 % (10.5-15); White Blood Count 10.5 10^3/ul (3.5-10.8)
[2017-09-03 09:34] LABS: EGFR Non-African American 134.6 (>60)
[2017-09-03] MEDS: Nitro Patch/OINT Remove PATCH OFF SCH (22:03)
[2017-09-04] MEDS: LORazepam TAB(*) 0.5 MG SL PRN (04:01)
--- NOTE | 2017-09-04 08:02 | PN ---
Subjective Date of Service: 09/04/17 Interval History: Patient offers no c/o, denies pain. Not clear if he could make his needs known. Staff reports he ate nothing 09/03/17. Objective Active Medications: Acetaminophen (Tylenol Tab*) 650 mg PO Q4H PRN PRN Reason: PAIN Amlodipine Besylate (Norvasc Tab*) 10 mg PO DAILY [facility] Last Admin: 09/03/17 08:37 Dose: Not Given Atropine Sulfate (Atropine 1% (Oral/Sl)*) 2 drop SL Q2H PRN PRN Reason: DISCOMFORT Clonidine HCl (Pwgixglk-Iln-4 0.3 Mg Patch*) 0.3 mg TRANSDERM Q7D [facility] Last Admin: 08/30/17 13:02 Dose: 0.3 mg Levetiracetam (Keppra Tab*) 500 mg PO BID [facility] Last Admin: 09/03/17 23:23 Dose: 500 mg Lorazepam (Ativan Tab(*)) 0.5 mg SL Q4H PRN PRN Reason: ANXIETY Last Admin: 09/04/17 04:01 Dose: 0.5 mg Metoprolol Tartrate (Lopressor Tab*) 25 mg PO BID [facility] Last Admin: 09/03/17 23:24 Dose: 25 mg Morphine Sulfate (Morphine Oral Concentrate*) 5 mg SL Q30M PRN PRN Reason: PAIN Last Admin: 09/03/17 23:24 Dose: 5 mg Nitroglycerin (Nitroglycerin 10 Mg Patch*) 1 patch TRANSDERM DAILY [facility] Last Admin: 09/03/17 08:22 Dose: 1 patch Ondansetron HCl (Zofran Inj*) 4 mg IV Q4H PRN PRN Reason: NAUSEA Pharmacy Profile Note (Nitro Patch/Oint Remove*) 1 note PATCH OFF BEDTIME [facility] Last Admin: 09/03/17 22:03 Dose: Not Given Sertraline HCl (Zoloft*) 25 mg PO DAILY [facility] Last Admin: 09/03/17 08:28 Dose: Not Given Vital Signs - 8 hr 09/04/17 09/04/17 09/04/17 02:02 04:01 06:19 Respiratory 18 20 20 Rate Oxygen Devices in Use Now: None Appearance: Lethargic but responds. Supine in bed. Neutral affect. Looks comfortable. Eyes: No Scleral Icterus Extremities: No Edema, No Clubbing, Cyanosis, - Neurological: NL Sensation - Moves all limbs. He can state his whole name and his age. Passive. Result Diagrams: 09/03/17 09:14 09/03/17 09:14 Additional Lab and Data: Lab Results 08/28/17 08/28/17 08/28/17 Range/Units 10:20 10:20 10:20 WBC 8.7 (3.5-10.8) 10^3/ul RBC 4.32 (4.0-5.4) 10^6/ul Hgb 13.4 L (14.0-18.0) g/dl Hct 39 L (42-52) % MCV 91 (80-94) fL MCH 31 (27-31) pg MCHC 34 (31-36) g/dl RDW 14 (10.5-15) % Plt Count 132 L (150-450) 10^3/ul MPV 9 (7.4-10.4) um3 Neut % (Auto) 89.3 H (38-83) % Lymph % (Auto) 4.3 L (25-47) % [place] % (Auto) 6.1 (1-9) % Eos % (Auto) 0 (0-6) % Baso % (Auto) 0.3 (0-2) % Absolute Neuts (auto) 7.8 H (1.5-7.7) 10^3/ul Absolute Lymphs (auto) 0.4 L (1.0-4.8) 10^3/ul Absolute Monos (auto) 0.5 (0-0.8) 10^3/ul Absolute Eos (auto) 0 (0-0.6) 10^3/ul Absolute Basos (auto) 0 (0-0.2) 10^3/ul Absolute Nucleated RBC 0 10^3/ul Nucleated RBC % 0 INR (Anticoag Therapy) 1.03 H (0.77-1.02) APTT 29.3 (26.0-36.3) seconds Sodium 140 (133-145) mmol/L Potassium 3.6 (3.5-5.0) mmol/L Chloride 102 (101-111) mmol/L Carbon Dioxide 31 (22-32) mmol/L Anion Gap 7 (2-11) mmol/L BUN 14 (6-24) mg/dL Creatinine 0.65 L (0.67-1.17) mg/dL Est GFR ( Amer) 148.8 (>60) Est GFR (Non-Af Amer) 115.7 (>60) BUN/Creatinine Ratio 21.5 H (8-20) Glucose 226 H (70-100) mg/dL Lactic Acid (0.5-2.0) mmol/L Calcium 9.1 (8.6-10.3) mg/dL Total Bilirubin 1.10 H (0.2-1.0) mg/dL AST 17 (13-39) U/L ALT 12 (7-52) U/L Alkaline Phosphatase 89 (34-104) U/L Troponin I 0.02 (<0.04) ng/mL Total Protein 6.7 (6.4-8.9) g/dL Albumin 3.9 (3.2-5.2) g/dL Globulin 2.8 (2-4) g/dL Albumin/Globulin Ratio 1.4 (1-3) // Range/Units 10:20 WBC (3.5-10.8) 10^3/ul RBC (4.0-5.4) 10^6/ul Hgb (14.0-18.0) g/dl Hct (42-52) % MCV (80-94) fL MCH (27-31) pg MCHC (31-36) g/dl RDW (10.5-15) % Plt Count (150-450) 10^3/ul MPV (7.4-10.4) um3 Neut % (Auto) (38-83) % Lymph % (Auto) (25-47) % [place] % (Auto) (1-9) % Eos % (Auto) (0-6) % Baso % (Auto) (0-2) % Absolute Neuts (auto) (1.5-7.7) 10^3/ul Absolute Lymphs (auto) (1.0-4.8) 10^3/ul Absolute Monos (auto) (0-0.8) 10^3/ul Absolute Eos (auto) (0-0.6) 10^3/ul Absolute Basos (auto) (0-0.2) 10^3/ul Absolute Nucleated RBC 10^3/ul Nucleated RBC % INR (Anticoag Therapy) (0.77-1.02) APTT (26.0-36.3) seconds Sodium (133-145) mmol/L Potassium (3.5-5.0) mmol/L Chloride (101-111) mmol/L Carbon Dioxide (22-32) mmol/L Anion Gap (2-11) mmol/L BUN (6-24) mg/dL Creatinine (0.67-1.17) mg/dL Est GFR ( Amer) (>60) Est GFR (Non-Af Amer) (>60) BUN/Creatinine Ratio (8-20) Glucose (70-100) mg/dL Lactic Acid 1.7 (0.5-2.0) mmol/L Calcium (8.6-10.3) mg/dL Total Bilirubin (0.2-1.0) mg/dL AST (13-39) U/L ALT (7-52) U/L Alkaline Phosphatase (34-104) U/L Troponin I (<0.04) ng/mL Total Protein (6.4-8.9) g/dL Albumin (3.2-5.2) g/dL Globulin (2-4) g/dL Albumin/Globulin Ratio (1-3) Assess/Plan/Problems-Billing Assessment: 89 yo M found down found with multiple large ICH - Patient Problems (1) Intracerebral bleed Current Visit: Yes Status: Acute Code(s): I61.9 - NONTRAUMATIC INTRACEREBRAL HEMORRHAGE, UNSPECIFIED SNOMED Code(s): 390524891 Comment: Jovani is the HCP On comfort care. Staff reports he ate nothing 09/03/17. Liquid intake approx 400 ml/d. On pureed diet. (2) Hypertension Current Visit: Yes Status: Acute Code(s): I10 - ESSENTIAL (PRIMARY) HYPERTENSION SNOMED Code(s): 87234806 Comment: Comfort care, no further med titration. (3) Hospice care Current Visit: Yes Status: Acute Comment: Patient accepted for Hospice by Dr. Sutton. Caprice has requested this. Stop sertraline, order PNR MS, lorazepam, and atropine. I will try to talk to family members. Status and Disposition: to floor
[2017-09-04] MEDS: Metoprolol Tartrate TAB* 25 MG PO SCH ×2 (09:07→22:52)
[2017-09-04] MEDS: amLODIPine TAB* 5 MG PO SCH (09:08)
[2017-09-04] MEDS: Nitroglycerin 0.4 MG/HR PATCH* (10 MG) TRANSDERM SCH (09:08)
[2017-09-04] MEDS: levETIRAcetam TAB* 500 MG PO SCH ×2 (09:08→22:52)
[2017-09-04] MEDS: Sertraline* 25 MG TAB PO SCH (09:08)
[2017-09-04] MEDS: Nitro Patch/OINT Remove PATCH OFF SCH (22:53)
[2017-09-05] MEDS: Morphine ORAL CONCENTRATE* 5 MG/0.25 ML ORAL.SYRIN SL PRN ×6 (03:28→23:29)
[2017-09-05] MEDS: LORazepam TAB(*) 0.5 MG SL PRN ×3 (03:29→13:52)
[2017-09-05 07:40] VITALS: BP 151/79
[2017-09-05] MEDS: Sertraline* 25 MG TAB PO SCH (08:12)
[2017-09-05] MEDS: Metoprolol Tartrate TAB* 25 MG PO SCH (08:13)
[2017-09-05] MEDS: amLODIPine TAB* 5 MG PO SCH (08:13)
[2017-09-05] MEDS: Nitroglycerin 0.4 MG/HR PATCH* (10 MG) TRANSDERM SCH (08:18)
--- NOTE | 2017-09-05 09:15 | PN ---
Subjective Date of Service: 09/05/17 Interval History: Patient offers no c/o, likely could not make his needs known. Objective Active Medications: Acetaminophen (Tylenol Tab*) 650 mg PO Q4H PRN PRN Reason: PAIN Amlodipine Besylate (Norvasc Tab*) 10 mg PO DAILY [facility] Last Admin: 09/05/17 08:13 Dose: 10 mg Atropine Sulfate (Atropine 1% (Oral/Sl)*) 2 drop SL Q2H PRN PRN Reason: DISCOMFORT Clonidine HCl (Kjmwtwws-Bdc-3 0.3 Mg Patch*) 0.3 mg TRANSDERM Q7D [facility] Last Admin: 08/30/17 13:02 Dose: 0.3 mg Levetiracetam (Keppra Tab*) 500 mg PO BID [facility] Last Admin: 09/04/17 22:52 Dose: 500 mg Lorazepam (Ativan Tab(*)) 0.5 mg SL Q4H PRN PRN Reason: ANXIETY Last Admin: 09/05/17 08:12 Dose: 0.5 mg Metoprolol Tartrate (Lopressor Tab*) 25 mg PO BID [facility] Last Admin: 09/05/17 08:13 Dose: 25 mg Morphine Sulfate (Morphine Oral Concentrate*) 5 mg SL Q30M PRN PRN Reason: PAIN Last Admin: 09/05/17 03:28 Dose: 5 mg Nitroglycerin (Nitroglycerin 10 Mg Patch*) 1 patch TRANSDERM DAILY [facility] Last Admin: 09/05/17 08:18 Dose: 1 patch Ondansetron HCl (Zofran Inj*) 4 mg IV Q4H PRN PRN Reason: NAUSEA Pharmacy Profile Note (Nitro Patch/Oint Remove*) 1 note PATCH OFF BEDTIME [facility] Last Admin: 09/04/17 22:53 Dose: 1 applic Sertraline HCl (Zoloft*) 25 mg PO DAILY [facility] Last Admin: 09/05/17 08:12 Dose: 25 mg Vital Signs - 8 hr 09/05/17 09/05/17 09/05/17 03:28 03:29 07:27 Temperature 98.0 F Pulse Rate 70 Respiratory 20 20 18 Rate Blood Pressure 151/79 (mmHg) O2 Sat by Pulse 94 Oximetry 09/05/17 09/05/17 07:37 08:12 Temperature Pulse Rate Respiratory 18 22 Rate Blood Pressure (mmHg) O2 Sat by Pulse Oximetry Oxygen Devices in Use Now: Nasal Cannula Result Diagrams: 09/03/17 09:14 09/03/17 09:14 Additional Lab and Data: Lab Results 08/28/17 08/28/17 08/28/17 Range/Units 10:20 10:20 10:20 WBC 8.7 (3.5-10.8) 10^3/ul RBC 4.32 (4.0-5.4) 10^6/ul Hgb 13.4 L (14.0-18.0) g/dl Hct 39 L (42-52) % MCV 91 (80-94) fL MCH 31 (27-31) pg MCHC 34 (31-36) g/dl RDW 14 (10.5-15) % Plt Count 132 L (150-450) 10^3/ul MPV 9 (7.4-10.4) um3 Neut % (Auto) 89.3 H (38-83) % Lymph % (Auto) 4.3 L (25-47) % [place] % (Auto) 6.1 (1-9) % Eos % (Auto) 0 (0-6) % Baso % (Auto) 0.3 (0-2) % Absolute Neuts (auto) 7.8 H (1.5-7.7) 10^3/ul Absolute Lymphs (auto) 0.4 L (1.0-4.8) 10^3/ul Absolute Monos (auto) 0.5 (0-0.8) 10^3/ul Absolute Eos (auto) 0 (0-0.6) 10^3/ul Absolute Basos (auto) 0 (0-0.2) 10^3/ul Absolute Nucleated RBC 0 10^3/ul Nucleated RBC % 0 INR (Anticoag Therapy) 1.03 H (0.77-1.02) APTT 29.3 (26.0-36.3) seconds Sodium 140 (133-145) mmol/L Potassium 3.6 (3.5-5.0) mmol/L Chloride 102 (101-111) mmol/L Carbon Dioxide 31 (22-32) mmol/L Anion Gap 7 (2-11) mmol/L BUN 14 (6-24) mg/dL Creatinine 0.65 L (0.67-1.17) mg/dL Est GFR ( Amer) 148.8 (>60) Est GFR (Non-Af Amer) 115.7 (>60) BUN/Creatinine Ratio 21.5 H (8-20) Glucose 226 H (70-100) mg/dL Lactic Acid (0.5-2.0) mmol/L Calcium 9.1 (8.6-10.3) mg/dL Total Bilirubin 1.10 H (0.2-1.0) mg/dL AST 17 (13-39) U/L ALT 12 (7-52) U/L Alkaline Phosphatase 89 (34-104) U/L Troponin I 0.02 (<0.04) ng/mL Total Protein 6.7 (6.4-8.9) g/dL Albumin 3.9 (3.2-5.2) g/dL Globulin 2.8 (2-4) g/dL Albumin/Globulin Ratio 1.4 (1-3) // Range/Units 10:20 WBC (3.5-10.8) 10^3/ul RBC (4.0-5.4) 10^6/ul Hgb (14.0-18.0) g/dl Hct (42-52) % MCV (80-94) fL MCH (27-31) pg MCHC (31-36) g/dl RDW (10.5-15) % Plt Count (150-450) 10^3/ul MPV (7.4-10.4) um3 Neut % (Auto) (38-83) % Lymph % (Auto) (25-47) % [place] % (Auto) (1-9) % Eos % (Auto) (0-6) % Baso % (Auto) (0-2) % Absolute Neuts (auto) (1.5-7.7) 10^3/ul Absolute Lymphs (auto) (1.0-4.8) 10^3/ul Absolute Monos (auto) (0-0.8) 10^3/ul Absolute Eos (auto) (0-0.6) 10^3/ul Absolute Basos (auto) (0-0.2) 10^3/ul Absolute Nucleated RBC 10^3/ul Nucleated RBC % INR (Anticoag Therapy) (0.77-1.02) APTT (26.0-36.3) seconds Sodium (133-145) mmol/L Potassium (3.5-5.0) mmol/L Chloride (101-111) mmol/L Carbon Dioxide (22-32) mmol/L Anion Gap (2-11) mmol/L BUN (6-24) mg/dL Creatinine (0.67-1.17) mg/dL Est GFR ( Amer) (>60) Est GFR (Non-Af Amer) (>60) BUN/Creatinine Ratio (8-20) Glucose (70-100) mg/dL Lactic Acid 1.7 (0.5-2.0) mmol/L Calcium (8.6-10.3) mg/dL Total Bilirubin (0.2-1.0) mg/dL AST (13-39) U/L ALT (7-52) U/L Alkaline Phosphatase (34-104) U/L Troponin I (<0.04) ng/mL Total Protein (6.4-8.9) g/dL Albumin (3.2-5.2) g/dL Globulin (2-4) g/dL Albumin/Globulin Ratio (1-3) Assess/Plan/Problems-Billing Assessment: 89 yo M found down found with multiple large ICH - Patient Problems (1) Intracerebral bleed Current Visit: Yes Status: Acute Code(s): I61.9 - NONTRAUMATIC INTRACEREBRAL HEMORRHAGE, UNSPECIFIED SNOMED Code(s): 607871435 Comment: Jovani is the HCP On comfort care. Staff reports he ate nothing 09/03/17. Liquid intake approx 400 ml/d. On pureed diet. Levetiracetam changed to liquid form due to swallowing difficulty. (2) Hypertension Current Visit: Yes Status: Acute Code(s): I10 - ESSENTIAL (PRIMARY) HYPERTENSION SNOMED Code(s): 28242442 Comment: Comfort care, po BP meds stopped 09/05 as he is having difficulty swallowing. Note Na+ 154 on 09/03/17. No further labs ordered as patient is comfort care. Prognosis poor, depends on his oral intake. (3) Hospice care Current Visit: Yes Status: Acute Comment: Patient accepted for Hospice by Dr. Sutton. Niece has requested this. Stop sertraline, order PNR MS, lorazepam, and atropine. I will try to talk to family members. Status and Disposition: to floor
[2017-09-05] MEDS: levETIRAcetam TAB* 500 MG PO SCH (09:27)
[2017-09-05] MEDS: levETIRAcetam LIQ* 500 MG/5 ML UDC PO SCH ×2 (09:39→20:28)
[2017-09-05] MEDS ORDERED: cloNIDine 0.3 MG PATCH* 0.3 MG/24 HR 7 DAY PATCH TRANSDERM SCH ×3 (14:00→14:40)
[2017-09-05] MEDS ORDERED: LORazepam TAB(*) 0.5 MG SL PRN (16:29)
--- NOTE | 2017-09-05 16:31 | PN ---
Progress Note - Progress Note Date of Service: 09/05/17 Note: I spoke in person with the HCP , Kishore Phillips. He understands the prognosis and agrees with comfort care measures only. The patient seemed a little restless despite getting bot lorazepam and morphine and I have increased the doses of both.
[2017-09-05] MEDS: Nitro Patch/OINT Remove PATCH OFF SCH (20:28)
[2017-09-05] MEDS: LORazepam TAB(*) 1 MG SL PRN (23:28)
[2017-09-06] MEDS: LORazepam TAB(*) 1 MG SL PRN ×2 (04:24→07:26)
[2017-09-06] MEDS: Morphine ORAL CONCENTRATE* 5 MG/0.25 ML ORAL.SYRIN SL PRN ×5 (04:24→09:50)
[2017-09-06] MEDS: levETIRAcetam LIQ* 500 MG/5 ML UDC PO SCH ×2 (07:16→07:28)
[2017-09-06] MEDS: Nitroglycerin 0.4 MG/HR PATCH* (10 MG) TRANSDERM SCH (07:18)
--- NOTE | 2017-09-06 07:30 | PN ---
Subjective Date of Service: 09/06/17 Interval History: Patient unresponsive to voice or light touch. Objective Active Medications: Atropine Sulfate (Atropine 1% (Oral/Sl)*) 2 drop SL Q2H PRN PRN Reason: DISCOMFORT Clonidine HCl ([id number] 0.3 Mg Patch*) 0.3 mg TRANSDERM WEEKLY@1400 [facility] Last Admin: 09/05/17 14:41 Dose: 0.3 mg Levetiracetam (Keppra Liq*) 500 mg PO BID [facility] Last Admin: 09/05/17 20:28 Dose: 500 mg Lorazepam (Ativan Tab(*)) 1 mg SL Q3H PRN PRN Reason: ANXIETY Last Admin: 09/06/17 04:24 Dose: 1 mg Morphine Sulfate (Morphine Oral Concentrate*) 10 mg SL Q30M PRN PRN Reason: PAIN Last Admin: 09/06/17 07:16 Dose: 10 mg Nitroglycerin (Nitroglycerin 10 Mg Patch*) 1 patch TRANSDERM DAILY [facility] Last Admin: 09/06/17 07:18 Dose: 1 patch Pharmacy Profile Note (Nitro Patch/Oint Remove*) 1 note PATCH OFF BEDTIME [facility] Last Admin: 09/05/17 20:28 Dose: 1 applic Vital Signs - 8 hr 09/05/17 09/05/17 09/06/17 23:28 23:29 02:13 Respiratory 20 20 18 Rate 09/06/17 09/06/17 09/06/17 04:24 06:23 06:26 Respiratory 22 28 24 Rate 09/06/17 07:16 Respiratory 28 Rate Oxygen Devices in Use Now: Nasal Cannula Appearance: Head partly up in bed. Tachypneic. Eyes closed. Patient unresponsive to voice or light touch. Eyes: No Scleral Icterus Respiratory: Symmetrical Chest Expansion and Respiratory Effort, Clear to Auscultation, Clear to Percussion Extremities: No Edema, No Clubbing, Cyanosis, - Skin: No Rash or Ulcers, No Nodules or Sclerosis, - Neurological: - - Pt unresponsive to voice or light touch. No tremor. Result Diagrams: 09/03/17 09:14 09/03/17 09:14 Additional Lab and Data: Lab Results 08/28/17 08/28/17 08/28/17 Range/Units 10:20 10:20 10:20 WBC 8.7 (3.5-10.8) 10^3/ul RBC 4.32 (4.0-5.4) 10^6/ul Hgb 13.4 L (14.0-18.0) g/dl Hct 39 L (42-52) % MCV 91 (80-94) fL MCH 31 (27-31) pg MCHC 34 (31-36) g/dl RDW 14 (10.5-15) % Plt Count 132 L (150-450) 10^3/ul MPV 9 (7.4-10.4) um3 Neut % (Auto) 89.3 H (38-83) % Lymph % (Auto) 4.3 L (25-47) % Dickson % (Auto) 6.1 (1-9) % Eos % (Auto) 0 (0-6) % Baso % (Auto) 0.3 (0-2) % Absolute Neuts (auto) 7.8 H (1.5-7.7) 10^3/ul Absolute Lymphs (auto) 0.4 L (1.0-4.8) 10^3/ul Absolute Monos (auto) 0.5 (0-0.8) 10^3/ul Absolute Eos (auto) 0 (0-0.6) 10^3/ul Absolute Basos (auto) 0 (0-0.2) 10^3/ul Absolute Nucleated RBC 0 10^3/ul Nucleated RBC % 0 INR (Anticoag Therapy) 1.03 H (0.77-1.02) APTT 29.3 (26.0-36.3) seconds Sodium 140 (133-145) mmol/L Potassium 3.6 (3.5-5.0) mmol/L Chloride 102 (101-111) mmol/L Carbon Dioxide 31 (22-32) mmol/L Anion Gap 7 (2-11) mmol/L BUN 14 (6-24) mg/dL Creatinine 0.65 L (0.67-1.17) mg/dL Est GFR ( Amer) 148.8 (>60) Est GFR (Non-Af Amer) 115.7 (>60) BUN/Creatinine Ratio 21.5 H (8-20) Glucose 226 H (70-100) mg/dL Lactic Acid (0.5-2.0) mmol/L Calcium 9.1 (8.6-10.3) mg/dL Total Bilirubin 1.10 H (0.2-1.0) mg/dL AST 17 (13-39) U/L ALT 12 (7-52) U/L Alkaline Phosphatase 89 (34-104) U/L Troponin I 0.02 (<0.04) ng/mL Total Protein 6.7 (6.4-8.9) g/dL Albumin 3.9 (3.2-5.2) g/dL Globulin 2.8 (2-4) g/dL Albumin/Globulin Ratio 1.4 (1-3) 08/28/17 Range/Units 10:20 WBC (3.5-10.8) 10^3/ul RBC (4.0-5.4) 10^6/ul Hgb (14.0-18.0) g/dl Hct (42-52) % MCV (80-94) fL MCH (27-31) pg MCHC (31-36) g/dl RDW (10.5-15) % Plt Count (150-450) 10^3/ul MPV (7.4-10.4) um3 Neut % (Auto) (38-83) % Lymph % (Auto) (25-47) % Dickson % (Auto) (1-9) % Eos % (Auto) (0-6) % Baso % (Auto) (0-2) % Absolute Neuts (auto) (1.5-7.7) 10^3/ul Absolute Lymphs (auto) (1.0-4.8) 10^3/ul Absolute Monos (auto) (0-0.8) 10^3/ul Absolute Eos (auto) (0-0.6) 10^3/ul Absolute Basos (auto) (0-0.2) 10^3/ul Absolute Nucleated RBC 10^3/ul Nucleated RBC % INR (Anticoag Therapy) (0.77-1.02) APTT (26.0-36.3) seconds Sodium (133-145) mmol/L Potassium (3.5-5.0) mmol/L Chloride (101-111) mmol/L Carbon Dioxide (22-32) mmol/L Anion Gap (2-11) mmol/L BUN (6-24) mg/dL Creatinine (0.67-1.17) mg/dL Est GFR ( Amer) (>60) Est GFR (Non-Af Amer) (>60) BUN/Creatinine Ratio (8-20) Glucose (70-100) mg/dL Lactic Acid 1.7 (0.5-2.0) mmol/L Calcium (8.6-10.3) mg/dL Total Bilirubin (0.2-1.0) mg/dL AST (13-39) U/L ALT (7-52) U/L Alkaline Phosphatase (34-104) U/L Troponin I (<0.04) ng/mL Total Protein (6.4-8.9) g/dL Albumin (3.2-5.2) g/dL Globulin (2-4) g/dL Albumin/Globulin Ratio (1-3) Assess/Plan/Problems-Billing Assessment: 89 yo M found down found with multiple large ICH - Patient Problems (1) Intracerebral bleed Current Visit: Yes Status: Acute Code(s): I61.9 - NONTRAUMATIC INTRACEREBRAL HEMORRHAGE, UNSPECIFIED SNOMED Code(s): 610087335 Comment: Jovani is the HCP On comfort care. Clinically deteriorated since 09/05/17. On pureed diet. D/C levetiracetam as he can no longer swallow. (2) Hypertension Current Visit: Yes Status: Acute Code(s): I10 - ESSENTIAL (PRIMARY) HYPERTENSION SNOMED Code(s): 70017642 Comment: Comfort care, po BP meds stopped 09/05 as he is having difficulty swallowing. Note Na+ 154 on 09/03/17. No further labs ordered as patient is comfort care. Prognosis a day or so at most. (3) Hospice care Current Visit: Yes Status: Acute Comment: Patient accepted for Hospice by Dr. Sutton. Nephew agrees to this; I spoke at lenght with him on 09/05/17. Doses of MS and lorazepam increased on 09/05 to provide more comfort. Status and Disposition: to floor
== END 2017-09-06 10:59 | disposition expired | DRG 86 ==
LOC: ED 09:47 → ICU 12:26 → MED 09-01 17:13
PROVIDERS: ADMIT Internal Medicine; ATTEND Internal Medicine
DX: S06.6X0A Traumatic subarachnoid hemorrhage without loss of consciousness, initial encounter (principal); G81.94 Hemiplegia, unspecified affecting left nondominant side; E11.9 Type 2 diabetes mellitus without complications; F03.90 Unspecified dementia, unspecified severity, without behavioral disturbance, psychotic disturbance, mood disturbance, and anxiety; I35.0 Nonrheumatic aortic (valve) stenosis; I10 Essential (primary) hypertension; I25.10 Atherosclerotic heart disease of native coronary artery without angina pectoris; N43.41 Spermatocele of epididymis, single; R47.81 Slurred speech; N40.0 Benign prostatic hyperplasia without lower urinary tract symptoms; Z66 Do not resuscitate; W18.30XA Fall on same level, unspecified, initial encounter; Z95.1 Presence of aortocoronary bypass graft; Z98.42 Cataract extraction status, left eye; Z98.41 Cataract extraction status, right eye; Z82.49 Family history of ischemic heart disease and other diseases of the circulatory system; Z87.891 Personal history of nicotine dependence; Y92.009 Unspecified place in unspecified non-institutional (private) residence as the place of occurrence of the external cause
CPT/HCPCS: 36415; 70450; 71010; 80048; 80053; 81003; 83605; 84484; 85025; 85610; 85730; 87641; 94760; A9270-GY; J2060; J2270